=== PATIENT | male | born 1955 | race Caucasian/White ===

== ENCOUNTER → 2023-09-07 08:46 | Outpatient (REF) | payer OTHER, SELFPAY | LOC: DHCBC MAIN 08:46 | PROVIDERS: ATTENDING PHYSICIAN Internal Medicine; FAMILY PHYSICIAN Physician Assistant Medical | DX: I35.0 Nonrheumatic aortic (valve) stenosis (principal) | CPT/HCPCS: 93306 ==

== ENCOUNTER → 2024-01-04 15:00 | Outpatient (REF) | payer OTHER, SELFPAY | LOC: RAD 15:00 | PROVIDERS: ATTENDING PHYSICIAN Physician Assistant Medical | DX: M25.511 Pain in right shoulder (principal) | CPT/HCPCS: 73030 ==

== ENCOUNTER → 2024-02-07 08:56 | Outpatient (REF) | payer OTHER, SELFPAY | LOC: RCS 08:56 | PROVIDERS: ATTENDING PHYSICIAN Internal Medicine; FAMILY PHYSICIAN Physician Assistant Medical | DX: I35.0 Nonrheumatic aortic (valve) stenosis (principal) | CPT/HCPCS: 93017; 93320; 93325; 93350 ==

== ENCOUNTER 2024-02-20 06:22 | Day surgery (SDC) | payer OTHER, SELFPAY ==
[2024-02-17 10:07] LABS: % Eosinophils 2.7 % (0-6); % Immature Granulocytes 0.5 % (0-0.5); % Monocytes 10.9 % (1.7-9.3); % Neutrophils 60.9 % (42.2-75.2); Absolute Basophils 0.1 10^3/uL (0-0.2); Absolute Eosinophils 0.2 10^3/uL (0-0.7); Absolute Lymphocytes 1.4 10^3/uL (1.2-3.4); Absolute Monocytes 0.6 10^3/uL (0.1-0.6); Absolute Neutrophils 3.6 10^3/uL (1.4-6.5); Hemoglobin 14.8 g/dL (13.0-18.0); Mean Corp Hgb Conc. 34.4 g/dL (33.0-37.0); Mean Corpuscular Hgb 29.1 pg (27.0-31.0); Mean Corpuscular Volume 84.5 fL (80.0-94.0); Mean Platelet Volume 11.6 fL (7.4-10.4); Nucleated Red Blood Cells % 0 % (-); Platelet Count 156 10^3/uL (130-400); Red Blood Cell Count 5.09 10^6/uL (4.70-6.10); Red Cell Dist. Width 13.4 % (11.5-14.5); White Blood Cell Count 5.9 10^3/uL (4.8-10.8)
[2024-02-17 10:54] LABS: ALT (SGPT) 19 U/L (0-50); AST (SGOT) 38 U/L (17-59); Albumin 4.5 g/dl (3.5-5.0); Alkaline Phosphatase 48 U/L (38-126); Blood Urea Nitrogen 25 mg/dl (9-20); Calcium 9.9 mg/dl (8.4-10.2); Carbon Dioxide 23 mmol/L (22-30); Chloride 105 mmol/L (98-107); Glucose 111 mg/dl (70-99); Potassium 4.4 mmol/L (3.5-5.1); Sodium 140 mmol/L (135-145); Total Protein 7.1 g/dl (6.3-8.2); eGFR > 60.00
[2024-02-20] VITALS (12 sets, daily range): BP systolic 94–134; BP diastolic 58–69; BMI 23.5
[2024-02-20] MEDS: LOW STRENGTH ASPIRIN 81 MG PO (07:19)
[2024-02-20] MEDS: NSS 235 ML IV (07:21)
--- NOTE | 2024-02-20 07:28 | HPS.HSE ---
Family Physician
-
Family Physician: Ena Campos
Chief Complaint
-
Severe ,abnormal stress echo.
History of Present Illness
68yo male with which is severe, with slight progression on last echo. Presented for routine stress echo prior to potential valve replacement. Stress echo being abnormal with possible CAD. We will perform a left hearth cath for possible
intervention. Patinet denies symptoms.
Medical History
Past Medical History
Past Medical History: Reports Other (see below)
Additional Past Medical History:
-severe
HTN
HLD
Testicular CA 1970s-chemo
H&N CA -tongue-s/p excision, xrt 2007
Remote tobacco and ETOH
O/A
Past Surgical History: Reports Bowel Resection, Orthopedic (NANCY), Urological (testicle) and Other (ventral hernia)
Additional Past Surgical History:
head and neck-tongue
Social History
Tobacco: Former Smoker
Alcohol: Former (hx-now social)
Family History
Family History: Not pertinent
Allergies / Home Medications
Allergies reflects when Allergies were last updated in [facility].
Home Medications with original date entered in [facility]
Allergy/Medication List:
ALLERGY
NKDA
MEDICATION
Aspirin 81mg daily
lisinopril 2.5mg daily
Pentoxiphyline
Review of Systems
-
History Source: Patient
A 12 point ROS was completed and negative except as noted: Yes
Physical Exam
Vital Signs
Vital Signs
Temp Pulse Resp BP Pulse Ox
97.4 F 69 18 134/69 99
02/20/24 06:15 02/20/24 06:15 02/20/24 06:15 02/20/24 06:15 02/20/24 06:15
Physical Exam
General: Well Developed and Well Nourished
HEENT: PERRLA
Respiratory: Clear
Cardiac: S1/S2, Regular Rhythm and Murmur
GI: Soft and Non Tender
Musculoskeletal: No Edema and Normal Gait & Station
Skin: Warm and Dry
Neuro: AO x 3 and Other (left peripheral visual deficit)
Laboratory Results
-
02/17/24 09:39
02/17/24 09:39
Laboratory Results
Total Bilirubin 1.0 mg/dl (0.2-1.3) 02/17/24 09:39
AST 38 U/L (17-59) 02/17/24 09:39
ALT 19 U/L (0-50) 02/17/24 09:39
Alkaline Phosphatase 48 U/L (38-126) 02/17/24 09:39
Impression/Plan
-
IMPRESSION/PLAN:
Severe , abnormal stress echo-L heart cath.
--- NOTE | 2024-02-20 08:45 | ITS.CL.CATH ---
[employer] - Catheterization
Cardiac Catheterization
Procedure Report:
CARDIAC CATHETERIZATION REPORT
Date of Procedure: 02/20/2024
Referring: Caesar Carnes M.D.
Indication: Severe aortic valve stenosis, abnormal stress test.
PROCEDURE:
1. Right heart catheterization.
2. Left heart catheterization.
3. Coronary angiography.
4. Aortic valve interrogation.
5. Successful IFR of the mid LAD.
ACCESS:
6 Burkinan right radial artery.
5 Burkinan right antecubital vein.
CATHETERS:
1. 5 Burkinan balloon wedge.
2. 5 Burkinan JL 3.5.
3. 5 Burkinan JR4.
4. 6 Burkinan EBU 3.5 guiding catheter.
HEMODYNAMIC DATA
Weight (kg): 78.0
AO (s/d/x mmHg): 115/67/84
LV (s/x mmHg): 184/22
PCWP (a/v/x mmHg): 30/34/23
PA (s/d/x mmHg): 45/19/28
RV (s/x mmHg): 45/10
RA (a/v/x mmHg): 05/16/
SVC SvO2 (%): 72.1
PA SvO2 (%): 73.2
SaO2 (%): 99.0
Hbg (g/dL): 14.7
CO (L/min): 4.20
CI (L/min/m2): 2.10
TPG (mmHg): 5
PVR (Vanegas Units): 1.19
SVR (dynes*seconds*cm^-5): 1410
AVO2 Diff (Volume %): 5.16
AV gradient (x, mmHg): 42.09
AV area (cm2): 0.69
LEFT VENTRICULOGRAPHY: Not performed.
CORONARY ANGIOGRAPHY
Dominance: Right.
Left Main: Normal size, trifurcating vessel.
LAD: Large size vessel giving rise to at least 2 significant diagonals. There is a long, 50% lesion in the mid vessel immediately after the origin of the third diagonal.
Ramus: Small to medium size vessel supplying a portion of the proximal anterolateral wall. There is a 70% lesion in the proximal third of the vessel.
Circumflex: Large size, nondominant vessel giving rise to 2 obtuse marginals. OM1 is a small, bifurcating vessel that supplies a small amount of the proximal lateral wall. OM 2 is a large vessel which subsequently bifurcates into 2 daughter
branches and supplies the majority of the inferolateral wall. There are luminal irregularities in the body of OM 2.
RCA: Normal size, dominant vessel with a significant posterolateral arcade. There is a 30-40% lesion in the distal RCA, immediately proximal to the origin of the RPDA.
INTERVENTIONS
1. Successful IFR of the 50% mid LAD lesion, demonstrating occlusive disease (IFR = 0.83).
Narrative:
The decision was made to perform physiologic testing. The diagnostic catheter was removed over a wire and exchanged for a(n) 6 Burkinan EBU 3.5 guiding catheter. The guiding catheter was advanced into the ascending aorta and seated in the left main
coronary artery. Additional heparin was given to obtain an ACT greater than 250 seconds. An iFR wire was zeroed outside of the body, then inserted into the guiding sheath. The wire was advanced and the transducer was normalized just outside of the
guiding catheter tip. The wire was advanced into the distal LAD, beyond the 50% mid LAD lesion. Three iFR measurements were taken. The lesion was determined to be occlusive (0.83).
The wire was pulled back, confirming fidelity of measurement. The catheter was disengaged and the wire was withdrawn. The guiding catheter was then withdrawn over a standard J-wire.
Closure Device: Vascular band for the right radial artery, manual pressure for the right antecubital vein.
Radiation dose (mGy): 410.10
DAP (cm2.Gy): 35.9906
Fluoroscopy time (minutes): 7.5
Sedation time (minutes): 25
CONCLUSIONS:
1. Right dominant circulation with a 70% lesion in the proximal ramus, a 30-40% lesion in the distal RCA immediately proximal to the origin of the RPDA and an occlusive, 50% lesion in the mid LAD (IFR = 0.83).
2. Severe aortic valve stenosis (BA = 0.69 cm�, mean gradient 42.09 mmHg).
3. Moderately elevated filling pressures (LVEDP = 22 mmHg, PCWP = 23 mmHg at 78.0 kg).
RECOMMENDATIONS:
1. Expectant management after cardiac catheterization via right radial/antecubital approach.
2. Limited weight bearing on the right wrist for one week.
3. Consultation with multidisciplinary valve group regarding optimal strategy for valve replacement given the presence of occlusive coronary artery disease (PCI plus TAVR versus NARVAEZ to LAD plus SAVR).
4. Aggressive primary prevention including high-dose, high potency statin.
Copy to: Caesar Carnes M.D., Ena Campos PA-C
Andres Alberts DO, FACC, FACP
--- NOTE | 2024-02-20 11:00 | CONSULT.STRU ---
Consultation
-
Date/Time Consultation Requested: 02/20/2024
Date/Time Consultation Performed: 02/20/2024
Requesting Provider: Dr. Andres Alberts
Performing Provider: VIK Menezes
Reason for Consultation: Aortic stenosis/CAD
Patient History
Physicians
Family Physician: Ena Campos
Outpatient Account Technician: Caesar Carnes
Primary Account Technician: Caesar Carnes
History of Present Illness
Mr. Martinez is a very pleasant 68yo male with severe aortic stenosis that had a cardiac catheterization today. He denies any ALVARENGA. He thinks he is feeling slightly more fatigued but overall he remains fairly active. He denies chest pain,
palpitations, PND, orthopnea or peripheral edema. His echocardiogram was notable for PG/M/49, BA: 1.0, peak velocity 462.0cm/s, mild to moderate AI, MAC with trace MR. EF is 60-65%. Stress echo was done on 02/07/2024 with PG/M/41, BA: 0.9,
post exercise PG/M/64, BA: 0.8. . Cardiac cath today demonstrates right dominant circulation with a 70% lesion in the proximal ramus, a 30-40% lesion in the distal RCA immediately proximal to the origin of the RPDA and an occlusive, 50%
lesion in the mid LAD (IFR = 0.83). Severe aortic valve stenosis (BA = 0.69 cm�, mean gradient 42.09 mmHg). Moderately elevated filling pressures (LVEDP = 22 mmHg, PCWP = 23 mmHg at 78.0 kg).
Reviewed the pathophysiology of aortic stenosis with the patient. Explained the treatment options of SAVR and TAVR. Explained the TAVR evaluation process including follow up BMP, CT TAVR scan, CT surgery consult and Heart Team discussion. Provided
with script for BMP next week, script and appointment for CT TAVR, Consult appointment with Dr. Amor and a copy of the TAVR education booklet with contact information. Explained the shared decision making process and the ongoing discussion that
will be had in deciding best treatment recommendation of TAVR/PCI vs SAVR/CABG. Allowed for and answered questions.
Past Medical History
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
Other (h/o Acute diverticulitis 2016)
Past Surgical History
Past Surgical History: Other (Tongue resection 2007, surgery for testicular cancer 1974, robot assisted lap. repair of ventral incisional hernia, R-THR)
Dental History
Receives regular dental care. Will call with dentist information.
Family History
Mother: at Age (58yo, brain cancer)
Father: at Age (72yo, NV)
Family Medical History: Early CAD (Brother had NV at 58yo)
Social History
Alcohol: Occasional
Drug: None
Tobacco: Former Smoker
Personal: Single
Living: Alone
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
Allergies
Allergy/AdvReac Type Severity Reaction Status Date / Time
No Known Allergies Allergy Verified 02/20/24 06:34
Home Medications
�Medication �Instructions �Recorded �Confirmed �Type
lisinopril 2.5 mg tablet 2.5 mg PO DAILY 07/26/20 02/20/24 History
vitamin E 268 mg (400 unit) capsule 400 unit PO BID 07/26/20 02/20/24 History
aspirin 81 mg chewable tablet 81 mg PO DAILY 02/14/24 02/20/24 History
multivitamin 1 tab PO DAILY 02/14/24 02/20/24 History
pentoxifylline 400 mg 400 mg PO TID 02/14/24 02/20/24 History
tablet,extended release
atorvastatin 40 mg tablet 40 mg PO DAILY #90 tabs 02/20/24 Rx
STS%
STS %: AVR: 0.732%, AVR/CAB: 1.4%
Review of Systems
-
History Source: Patient
General: Reports Fatigue (mild)
HEENT: Reports No Symptoms; Denies Visual Changes
Respiratory: Reports No Symptoms; Denies SOB, ALVARENGA, Cough, Asthma or PND
Cardiac: Reports No Symptoms; Denies Chest Pain, Known Vascular Disease, Palpitations or Edema
Abdomen/GI: Reports No Symptoms; Denies Abdominal Pain, Reflux, Nausea, Vomiting or Diarrhea
: Reports No Symptoms
Musculoskeletal: Reports No Symptoms
Skin: Reports No Symptoms
Neurological: Reports No Symptoms; Denies Headaches, Syncope or Dizzy
Vascular: Reports No Symptoms
Physical Exam
Vital Signs
Temp 97.4 F 02/20/24 06:41
Temp route: Oral 02/20/24 06:15
Pulse 70 02/20/24 10:30
Resp Rate 18 02/20/24 06:15
Blood pressure 126/66 02/20/24 10:29
Blood pressure extremity used: Right upper arm 02/20/24 10:10
Position: Sitting 02/20/24 10:10
MAP (cuff-Rigo Monitor) 86 02/20/24 10:29
SaO2 97 02/20/24 10:30
Oxygen Mode of Delivery Room air 02/20/24 10:10
Can the patient verbally communicate their pain? Yes 02/20/24 10:10
Actual Weight 78.4 kg 02/20/24 06:35
Body Mass Index (BMI) 23.5 02/20/24 06:35
Labs
02/17/24 09:39
02/17/24 09:39
Diagnostic Studies
Echocardiogram 09/07/2023:
CONCLUSIONS
Normal left ventricular size and systolic function. LV ejection fraction is 60-
65%.
Moderate concentric left ventricular hypertrophy.
Severe aortic stenosis. Mild to moderate aortic regurgitation.
Compared to prior study of Feb 2023, gradients have increased.
Indications:
Nonrheumatic aortic (valve) stenosis
Rhythm: Sinus
Portable Study: No
Technical Quality: Good
Contrast: None
BP: 138 / 76
PROCEDURE
A complete Transthoracic Echocardiogram was performed utilizing two-dimensional
evaluation with color flow and spectral Doppler analysis.
FINDINGS
Left Ventricle
Normal left ventricular size and systolic function. Moderate concentric left
ventricular hypertrophy. No regional wall motion abnormalities are seen. LV
ejection fraction is 60-65% by Moerlos's method of discs. Diastolic function
indeterminate.
Right Ventricle
Normal right ventricular size and function.
Left Atrium
Indexed LA volume is severely abnormal (> 48 mL/m2).
Right Atrium
Normal right atrium.
Mitral Valve
Mitral valve opens normally. Thickened mitral valve leaflets. Mitral annular
calcification. Trace mitral regurgitation.
Aortic Valve
Thickened aortic valve with restricted leaflet motion. Severe aortic stenosis.
The peak gradient across the valve is 85 mmHg with a mean of 49 mmHg. Using a
LVOT diameter of 2.3 cm, the BA is 1.0 cm sq. DI 0.2. Mild to moderate aortic
regurgitation.
Tricuspid Valve
Tricuspid valve opens normally. Trace tricuspid regurgitation. Estimated
pulmonary artery pressure of 19 mmHg assuming a right atrial pressure of 3
mmHg.
Pulmonic Valve
Structurally normal pulmonic valve. Mild pulmonic regurgitation.
Pericardium\\Pleura
Normal pericardium without effusion.
Aorta
The aortic root is of normal size. Normal ascending aorta.
Other Finding
The IVC is of normal size and demonstrates normal respiratory variation.
Interatrial septum is intact with no evidence of shunting by color flow
Doppler.
MEASUREMENTS (Male / Female) Normal Values
2D ECHO
LV Diastolic Diameter PLAX 4.2 cm 4.2 - 5.9 / 3.9 - 5.3 cm
LV Systolic Diameter PLAX 3.0 cm
IVS Diastolic Thickness 1.4 cm 0.6 - 1.0 / 0.6 - 0.9 cm
LVPW Diastolic Thickness 1.4 cm 0.6 - 1.0 / 0.6 - 0.9 cm
LV Relative Wall Thickness 0.7
LVOT Diameter 2.3 cm
LV Ejection Fraction MOD BP 63.6 % >= 55 %
LV Stroke Volume MOD BP 56.0 cm3
LV Cardiac Index MOD BP 2041.2 cm3/min
LV Stroke Volume MOD 4C 53.0 cm3
LV Stroke Volume 4C AL 59.3 cm3
LV Stroke Volume MOD 2C 58.0 cm3
LV Stroke Volume 2C AL 60.2 cm3
LA Area 4C View 27.4 cm2 <= 20 cm2
LA Length 4C 6.5 cm
LA Volume 93.0 cm3 18 - 58 / 22 - 52 cm3
LA Volume Index 52.5 cm3/m2 16 - 34 cm3/m2
Ascending Aorta Diameter 3.7 cm
DOPPLER
AV Peak Velocity 462.0 cm/s
AV Peak Gradient 85.4 mmHg
AV Mean Gradient 49.0 mmHg
AV Velocity Time Integral 92.2 cm
AI Peak Velocity 410.0 cm/s
AI Peak Gradient 67.2 mmHg
AI Pressure Half Time 392.0 ms
LVOT Peak Velocity 86.5 cm/s
LVOT Peak Gradient 3.0 mmHg
LVOT Velocity Time Integral 23.1 cm
LVOT Stroke Volume 96.0 cm3
LVOT Stroke Volume Index 47.3 ml/m2 empty
LVOT Cardiac Index 3498.3 cm3/min\\m2
AV Area Cont Eq vti 1.0 cm2
AV Area Cont Eq pk 0.8 cm2
Mitral E Point Velocity 70.1 cm/s
Mitral A Point Velocity 80.5 cm/s
Mitral E to A Ratio 0.9
LV E' Lateral Velocity 6.7 cm/s
Mitral E to LV E' Lateral Ratio 10.4
LV E' Septal Velocity 5.4 cm/s
Mitral E to LV E' Septal Ratio 13.1
TR Peak Velocity 200.0 cm/s
TR Peak Gradient 16.0 mmHg
Stress Echocardiogram 02/07/2024:
CONCLUSIONS
Abnormal stress echocardiogram.
-Baseline measurements: Severe aortic stenosis with peak/mean gradients of
68/41 mmHg calculated BA 0.9 cm2.
-Post exercise measurements: Severe aortic stenosis with peak/mean gradients of
120/64 mmHg, calculated BA 0.8 cm2.
-Positive ECG for ischemia with 2.0-2.[address] depression
inferolaterally at peak exercise; post-exercise ECG was slow to fully resolve
in recovery.
-No echocardiographic evidence of myocardial ischemia.
-DTS = -4.5.
-There was a noted drop in systolic blood pressure in Stage 3 of exercise;
exercise was soon thereafter terminated (Class IIa indication for aortic valve
replacement in asymptomatic severe aortic stenosis).
-Overall, moderate to high risk study.
Site Medical Director: Jeremie
ELBERT Melendez
Stress Tech: Charisma Holguin,
MS,CEP
Indications:
NONRHEUMATIC AORTIC (VALVE) STENOSIS
Rhythm: Sinus
Contrast: None
Technical Quality: Good
PROCEDURE
A treadmill Exercise Stress Echocardiogram was completed. Blood pressure, heart
rate and ECG tracings were obtained with each Walker protocol stage completed.
Pre-exercise two-dimensional transthoracic echocardiogram evaluation and post-
exercise two-dimensional transthoracic echocardiogram evaluation images were
obtained. Color flow and spectral Doppler evaluation was performed if
clinically necessary.
Patient History: Asymptomatic severe aortic stenosis, Hypertension
Cardiac Medications: Lisinopril: held today
Contrast:
Stress Results
Protocol: Walker
Exercise Duration (min:sec): 8 : 0
METS: 9.0
Rest Pulse Ox: 98 Stress Pulse Ox: 97
Forrester Score Risk Of Cardiac Event
Less than -10 is High Risk
-10 to +4 is Moderate Risk
>= 5 is Low Risk
Resting HR: 79 Resting BP: 142 / 68
Peak HR: 150 Peak BP: 164 / 74
Max Predicted HR: 150
100 % Max Predicted HR
Target HR: 128
Double Product: 71201
Forrester Score: -4.5
Angina Score: 0
0-none, 2-ied-ignanwos, 8-zffk-[id number]
ST Deviation: 2.5 mm
Stress Summary: The patient was exercised by the Walker protocol for
8:00 achieving 9.0 METS representing above average
aerobic exercise capacity.
The patient's target heart rate was achieved, reaching
150 bpm/100% predicted maximum heart rate.
There were no symptoms reported by the patient.
Occasional PVCs including rare ventricular couplets
and triplets; frequent PACs, including occasional
couplets and 4-5 beat atrial runs.
Positive ECG for ischemia with 2.0-2.[address] depression inferolaterally at peak exercise; post-
exercise ECG was slow to fully resolve in recovery.
BP Response: Hypotensive at peak exercise
Reason for Termination: MD discretion
Cardiac Symptoms: None
ECG INTERPRETATION
Resting ECG: Normal sinus rhythm, Minimal voltage criteria for LVH, rSr' V1-V2
Stress ECG: Positive ECG for ischemia with 2.0-2.[address]
depression inferolaterally at peak exercise; post-exercise ECG
was slow to fully resolve in recovery.
Arrhythmia: Occasional PVCs including rare ventricular couplets and triplet
Occasional-frequent PACs including occasional atrial couplets,
atrial salvos and rare 4-5 beat atrial runs
MEASUREMENTS (Male/Female) Normal Values
2D ECHO
LVOT Diameter 2.4 cm
DOPPLER
AV Peak Velocity 568 cm/s
AV Peak Gradient 129 mmHg
AV Mean Gradient 79 mmHg
AV Velocity Time Integral 93.5 cm
LVOT Peak Velocity 88.1 cm/s
LVOT Peak Gradient 3.1 mmHg
LVOT Velocity Time Integral 19.3 cm
LVOT Stroke Volume 87.3 cm3
LVOT Stroke Volume Index 43.6 ml/m2 empty
LVOT Cardiac Index 3441 cm3/min
AV Area Cont Eq vti 0.93 cm2
AV Area Cont Eq pk 0.7 cm2
ECHO INTERPRETATION
Resting images revealed normal left ventricular size and function. No regional
wall motion abnormalities were seen. The estimated ejection fraction is 60-
65%.
Post-Exercise Echo Interpretation
At peak exercise, the left ventricle augmented appropriately with no new
regional wall motion abnormalities. LV ejection fraction at peak exercise is
70-75%.
Cardiac Catheterization 02/20/2024:
HEMODYNAMIC DATA
Weight (kg):78.0
AO (s/d/x mmHg): 115/67/84
LV (s/x mmHg): 184/22
PCWP (a/v/x mmHg): 30/34/23
PA (s/d/x mmHg): 45/19/28
RV (s/x mmHg): 45/10
RA (a/v/x mmHg): 05/16/10
SVC SvO2 (%):72.1
PA SvO2 (%):73.2
SaO2 (%):99.0
Hbg (g/dL):14.7
CO (L/min): 4.20
CI (L/min/m2): 2.10
TPG (mmHg): 5
PVR (Vangeas Units): 1.19
SVR (dynes*seconds*cm^-5): 1410
AVO2 Diff (Volume %): 5.16
AV gradient (x, mmHg):42.09
AV area (cm2):0.69
LEFT VENTRICULOGRAPHY: Not performed.
CORONARY ANGIOGRAPHY
Dominance: Right.
Left Main: Normal size, trifurcating vessel.
LAD: Large size vessel giving rise to at least 2 significant diagonals. There is a long, 50% lesion in the mid vessel immediately after the origin of the third diagonal.
Ramus:Small to medium size vessel supplying a portion of the proximal anterolateral wall. There is a 70% lesion in the proximal third of the vessel.
Circumflex: Large size, nondominant vessel giving rise to 2 obtuse marginals. OM1 is a small, bifurcating vessel that supplies a small amount of the proximal lateral wall. OM 2 is a large vessel which subsequently bifurcates into 2 daughter
branches and supplies the majority of the inferolateral wall. There are luminal irregularities in the body of OM 2.
RCA: Normal size, dominant vessel with a significant posterolateral arcade. There is a 30-40% lesion in the distal RCA, immediately proximal to the origin of the RPDA.
INTERVENTIONS
1. Successful IFR of the 50% mid LAD lesion, demonstrating occlusive disease (IFR = 0.83).
Narrative:
The decision was made to perform physiologic testing. The diagnostic catheter was removed over a wire and exchanged for a(n) 6 Jordanian EBU 3.5 guiding catheter. The guiding catheter was advanced into the ascending aorta and seated in the left main
coronary artery. Additional heparin was given to obtain an ACT greater than 250 seconds. An iFR wire was zeroed outside of the body, then inserted into the guiding sheath. The wire was advanced and the transducer was normalized just outside of the
guiding catheter tip. The wire was advanced into the distal LAD, beyond the 50% mid LAD lesion. Three iFR measurements were taken. The lesion was determined to be occlusive (0.83).
The wire was pulled back, confirming fidelity of measurement. The catheter was disengaged and the wire was withdrawn. The guiding catheter was then withdrawn over a standard J-wire.
Closure Device: Vascular band for the right radial artery, manual pressure for the right antecubital vein.
Radiation dose (mGy): 410.10
DAP (cm2.Gy): 35.9906
Fluoroscopy time (minutes):7.5
Sedation time (minutes):25
CONCLUSIONS:
1. Right dominant circulation with a 70% lesion in the proximal ramus, a 30-40% lesion in the distal RCA immediately proximal to the origin of the RPDA and an occlusive, 50% lesion in the mid LAD (IFR = 0.83).
2. Severe aortic valve stenosis (BA = 0.69 cm�, mean gradient 42.09 mmHg).
3. Moderately elevated filling pressures (LVEDP = 22 mmHg, PCWP = 23 mmHg at 78.0 kg).
RECOMMENDATIONS:
1. Expectant management after cardiac catheterization via right radial/antecubital approach.
2. Limited weight bearing on the right wrist for one week.
3. Consultation with multidisciplinary valve group regarding optimal strategy for valve replacement given the presence of occlusive coronary artery disease (PCI plus TAVR versus NARVAEZ to LAD plus SAVR).
4. Aggressive primary prevention including high-dose, high potency statin.
Exam
General: Well Developed, Well Nourished, No Apparent Distress and Comfortable
HEENT: Normocephalic, Moist Mucous Membranes and PERRLA
Neck: Trachea Midline
Respiratory: Clear; Negative Wheezes, Crackles or Rhonchi
Cardiac: S1/S2, Regular Rhythm and Murmur (Grade III/)
GI: Soft, Non Tender, Non Distended and Normal Bowel Sounds
Rectal: Deferred by Provider
Skin: Warm and Dry
Neuro: AO x 3 and No Motor Deficits
Extremities: Pulses (+2 pedal pulses); Negative Lower Level Edema
Psych: Calm
Assessment / Plan
-
Procedure Type:�Isolated AVR
PERIOPERATIVE OUTCOME ESTIMATE %
Operative Mortality 0.732%
Morbidity & Mortality 5.1%
Stroke 0.992%
Renal Failure 0.619%
Reoperation 4.13%
Prolonged Ventilation 2.3%
Deep Sternal Wound Infection 0.036%
Long Hospital Stay (>14 days) 1.44%
Short Hospital Stay (<6 days)* 68.3%
Procedure Type:�CABG + AVR
PERIOPERATIVE OUTCOME ESTIMATE %
Operative Mortality 1.4%
Morbidity & Mortality 7.36%
Stroke 1.2%
Renal Failure 1.06%
Reoperation 5.26%
Prolonged Ventilation 4.19%
Deep Sternal Wound Infection 0.066%
Long Hospital Stay (>14 days) 2.91%
Short Hospital Stay (<6 days)* 49.7%
Severe Aortic stenosis:
��������������� Continue evaluation for TAVR vs SAVR
��������������� BMP 02/27/2024 at [facility]
��������������� CT TAVR scan 03/02/2024 at 0930 at
��������������� CT surgery consult with Dr. Amor on 03/06/2024
��������������� Heart team discussion at [facility]
Coronary Artery Disease:
Heart healthy diet
Started on Atorvastatin 40mg daily
ASA 81mg daily
Heart team discussion PCI vs CABG
Data Reviewed
-
EKG: Report Reviewed by me
Smoke Chaser: Report Reviewed by me and Discussed with Physician
Echo: Report Reviewed by me
Labs: Labs Reviewed by me
Old Records: Reviewed
Critical Care Time (in minutes): Cardiology office notes
Total Time Spent with Patient (in minutes): 30
[2024-02-20 12:10] LABS: ACT-LR - POC > 397 Seconds (116-155)
== END 2024-02-20 12:07 | disposition home or self-care (01) ==
LOC: CATH 06:22
PROVIDERS: ATTENDING PHYSICIAN Internal Medicine Cardiovascular Disease; FAMILY PHYSICIAN Physician Assistant Medical; OTHER PHYSICIAN Internal Medicine
DX: I35.2 Nonrheumatic aortic (valve) stenosis with insufficiency (principal); R94.39 Abnormal result of other cardiovascular function study; I25.10 Atherosclerotic heart disease of native coronary artery without angina pectoris; I10 Essential (primary) hypertension; E78.5 Hyperlipidemia, unspecified; Z85.47 Personal history of malignant neoplasm of testis; Z85.819 Personal history of malignant neoplasm of unspecified site of lip, oral cavity, and pharynx; Z87.891 Personal history of nicotine dependence; Z82.49 Family history of ischemic heart disease and other diseases of the circulatory system; Z79.82 Long term (current) use of aspirin
CPT/HCPCS: 93799; C1769; C1894; 36415; 80053; 85025; 85347; 93005; 93460; Q9967

== ENCOUNTER → 2024-03-02 08:38 | Outpatient (REF) | payer OTHER, SELFPAY | LOC: RAD 08:38 | PROVIDERS: ATTENDING PHYSICIAN Nurse Practitioner Adult Health; FAMILY PHYSICIAN Physician Assistant Medical | DX: I35.0 Nonrheumatic aortic (valve) stenosis (principal) | CPT/HCPCS: 74174; 75572; Q9967 ==

== ENCOUNTER 2024-04-16 05:08 | Inpatient (IN) | payer OTHER, SELFPAY ==
[2024-03-27 08:52] VITALS: BMI 24.3
[2024-03-27 09:56] LABS: Urine Albumin Negative (Neg - Trace); Urine Bilirubin Negative (Negative); Urine Character Clear (Clear); Urine Color Yellow; Urine Glucose Negative (Negative); Urine Ketone Negative (Negative); Urine Leukocyte Negative (Negative); Urine Nitrite Negative (Negative); Urine Occult Blood Negative (Negative); Urine Urobilinogen Negative (Neg - 1+)
[2024-03-27 10:00] LABS: % Basophils 0.6 % (0-2); % Eosinophils 3.1 % (0-6); % Immature Granulocytes 0.3 % (0-0.5); % Lymphocytes 18.3 % (20.5-51.1); % Monocytes 13.4 % (1.7-9.3); % Neutrophils 64.3 % (42.2-75.2); Absolute Eosinophils 0.2 10^3/uL (0-0.7); Absolute Lymphocytes 1.2 10^3/uL (1.2-3.4); Absolute Monocytes 0.9 10^3/uL (0.1-0.6); Absolute Neutrophils 4.1 10^3/uL (1.4-6.5); Hematocrit 42.2 % (39.0-52.0); Hemoglobin 14.2 g/dL (13.0-18.0); Mean Corp Hgb Conc. 33.6 g/dL (33.0-37.0); Mean Corpuscular Hgb 29.4 pg (27.0-31.0); Mean Corpuscular Volume 87.4 fL (80.0-94.0); Mean Platelet Volume 12.2 fL (7.4-10.4); Nucleated Red Blood Cells % 0 % (-); Platelet Count 117 10^3/uL (130-400); Red Blood Cell Count 4.83 10^6/uL (4.70-6.10); Red Cell Dist. Width 13.4 % (11.5-14.5); White Blood Cell Count 6.4 10^3/uL (4.8-10.8)
--- NOTE | 2024-03-27 10:10 | CM ---
Met with Mr. Martinez in [facility] He states prior to admission he resides in a two story condo with twelve steps to enter. He states he has a full flight of steps to get to bedroom/full bathroom. He states he has a powder room on the first floor.
He states prior to admission he was independent with ambulation and adls. He states he does not have any DME in the home. He states he has a prescription plan. He has a supportive daughter who resides nearby. The discharge plan is to return home
with a home visit by the Transitional Care Nurse when medically stable.
We reviewed pre-op and post-op routines. We reviewed the shower instructions. He has the soap, written instructions and the Cardiothoracic Surgery Educational Booklet. We also reviewed restrictions including sternal precautions and driving
restrictions. We discussed a home visit by the Transitional Care Nurse. He is agreeable to a home visit. The plan is for AVR/MVR on Tuesday April 16, 2024.
[2024-03-27 10:12] LABS: INR 1.01; PT 13.1 Sec (11.4-14.6)
[2024-03-27 10:13] LABS: APTT 28.6 Sec (23.4-35.0)
[2024-03-27 10:27] LABS: ALT (SGPT) 22 U/L (0-50); AST (SGOT) 30 U/L (17-59); Albumin 4.4 g/dl (3.5-5.0); Alkaline Phosphatase 47 U/L (38-126); Blood Urea Nitrogen 21 mg/dl (9-20); Calcium 9.2 mg/dl (8.4-10.2); Carbon Dioxide 26 mmol/L (22-30); Chloride 105 mmol/L (98-107); Direct Bilirubin 0.2 mg/dl (0.0-0.4); Estimated Creatinine Clearance 83 ml/min; Glucose 93 mg/dl (70-99); Potassium 4.6 mmol/L (3.5-5.1); Sodium 142 mmol/L (135-145); Total Bilirubin 0.9 mg/dl (0.2-1.3); eGFR > 60.00
[2024-04-16] VITALS (10 sets, daily range): BP systolic 77–138; BP diastolic 57–71; BMI 23.7
[2024-04-16] MEDS: MAGNESIUM OXIDE 500 MG PO (05:42)
[2024-04-16] MEDS: LOPRESSOR 25 MG PO (05:42)
[2024-04-16] MEDS: PROTONIX 40 MG PO (05:42)
[2024-04-16] MEDS: BACTROBAN 2% OINTMENT 1 APPLIC NASAL ×2 (05:42→20:59)
--- NOTE | 2024-04-16 06:07 | W.CVOR.SURPR ---
CVOR Surgeon Immed Pre Op
-
I have examined this patient prior to performance of the scheduled procedure.
The patient's condition is unchanged from the time of the dictated/written History and
Physical and the patient is able to undergo the scheduled procedure.
[2024-04-16 07:11] LABS: ACT+ - POC 104 Seconds (82-134)
[2024-04-16 07:23] LABS: Urine Albumin Negative (Neg - Trace); Urine Bilirubin Negative (Negative); Urine Character Clear (Clear); Urine Color Yellow; Urine Glucose Negative (Negative); Urine Ketone Negative (Negative); Urine Leukocyte Negative (Negative); Urine Nitrite Negative (Negative); Urine Occult Blood Negative (Negative); Urine Specific Gravity 1.005 (<1.030); Urine Urobilinogen Negative (Neg - 1+)
[2024-04-16 09:34] LABS: ACT+ - POC 691 Seconds (82-134)
[2024-04-16 10:08] LABS: B.E. - POC -4.1 mmol/L; Glucose - POC 96 mg/dl (70-99); HCO3 - POC 22 mmol/L (21-28); Hematocrit - POC 38 % PCV (42-52); Hemodilution- POC Yes; Hemoglobin Calculated - POC 12.9; Ionized Calcium - POC 1.21 mmol/L (1.15-1.33); PCO2 - POC 44 mmHg (35-48); PO2 - POC 436 mmHg (83-108); POC Comment PRE; Potassium - POC 3.6 mmol/L (3.5-5.1); Sodium - POC 141 mmol/L (136-145); pH - POC 7.31 (7.35-7.45)
[2024-04-16 10:23] LABS: ACT+ - POC 725 Seconds (82-134)
[2024-04-16 10:39] LABS: B.E. - POC 1.7 mmol/L; Glucose - POC 157 mg/dl (70-99); HCO3 - POC 26 mmol/L (21-28); Hematocrit - POC 31 % PCV (42-52); Hemodilution- POC Yes; Hemoglobin Calculated - POC 10.5; Ionized Calcium - POC 1.01 mmol/L (1.15-1.33); O2 Saturation %Calculated-POC 99.9 % (94-98); PCO2 - POC 40 mmHg (35-48); PO2 - POC 324 mmHg (83-108); POC Comment CPB; Potassium - POC 5.2 mmol/L (3.5-5.1); Sodium - POC 137 mmol/L (136-145); pH - POC 7.42 (7.35-7.45)
[2024-04-16 10:51] LABS: ACT+ - POC 629 Seconds (82-134)
[2024-04-16 11:08] LABS: B.E. - POC 1.1 mmol/L; Glucose - POC 149 mg/dl (70-99); HCO3 - POC 26 mmol/L (21-28); Hematocrit - POC 39 % PCV (42-52); Hemodilution- POC Yes; Hemoglobin Calculated - POC 13.3; Ionized Calcium - POC 1.06 mmol/L (1.15-1.33); O2 Saturation %Calculated-POC 99.7 % (94-98); PCO2 - POC 39 mmHg (35-48); PO2 - POC 191 mmHg (83-108); POC Comment CPB; Potassium - POC 4.4 mmol/L (3.5-5.1); Sodium - POC 140 mmol/L (136-145); pH - POC 7.42 (7.35-7.45)
[2024-04-16 11:18] LABS: ACT+ - POC 538 Seconds (82-134)
[2024-04-16 11:40] LABS: B.E. - POC 0.2 mmol/L; Glucose - POC 117 mg/dl (70-99); HCO3 - POC 25 mmol/L (21-28); Hematocrit - POC 37 % PCV (42-52); Hemodilution- POC Yes; Hemoglobin Calculated - POC 12.6; Ionized Calcium - POC 1.07 mmol/L (1.15-1.33); O2 Saturation %Calculated-POC 99.8 % (94-98); PCO2 - POC 40 mmHg (35-48); PO2 - POC 220 mmHg (83-108); POC Comment CPB; Potassium - POC 4.1 mmol/L (3.5-5.1); Sodium - POC 141 mmol/L (136-145); pH - POC 7.41 (7.35-7.45)
[2024-04-16 11:49] LABS: ACT+ - POC 492 Seconds (82-134)
[2024-04-16 11:57] LABS: B.E. - POC 0.8 mmol/L; Glucose - POC 106 mg/dl (70-99); HCO3 - POC 25 mmol/L (21-28); Hematocrit - POC 38 % PCV (42-52); Hemodilution- POC Yes; Hemoglobin Calculated - POC 12.9; Ionized Calcium - POC 1.07 mmol/L (1.15-1.33); O2 Saturation %Calculated-POC 99.8 % (94-98); PCO2 - POC 38 mmHg (35-48); PO2 - POC 223 mmHg (83-108); POC Comment CPB; Potassium - POC 4.2 mmol/L (3.5-5.1); Sodium - POC 141 mmol/L (136-145); pH - POC 7.42 (7.35-7.45)
[2024-04-16 12:06] LABS: ACT+ - POC 514 Seconds (82-134)
--- NOTE | 2024-04-16 12:18 | CM ---
pt in OR today, cm to follow.
[2024-04-16 12:48] LABS: B.E. - POC -2.7 mmol/L; Glucose - POC 120 mg/dl (70-99); HCO3 - POC 21 mmol/L (21-28); Hematocrit - POC 37 % PCV (42-52); Hemodilution- POC Yes; Hemoglobin Calculated - POC 12.5; Ionized Calcium - POC 1.05 mmol/L (1.15-1.33); O2 Saturation %Calculated-POC 99.9 % (94-98); PCO2 - POC 32 mmHg (35-48); PO2 - POC 244 mmHg (83-108); POC Comment WARM; Potassium - POC 4.2 mmol/L (3.5-5.1); Sodium - POC 140 mmol/L (136-145); pH - POC 7.43 (7.35-7.45)
[2024-04-16 12:50] LABS: ACT+ - POC 118 Seconds (82-134)
[2024-04-16] MEDS: NEURONTIN PO ×2 (13:05→15:38)
[2024-04-16] MEDS: THERAGRAN PO (13:16)
[2024-04-16] MEDS: TYLENOL PO (13:16)
--- NOTE | 2024-04-16 13:25 | W.IMMPOSTOP ---
Addendum entered and electronically signed by Keyshawn Amor MD 04/16/24 14:33:
[id number]
Original Note:
Surgical Immed Post Op Note
-
CARDIAC SURGERY OPERATIVE NOTE:
Preoperative Dx:
Severe aortic stenosis
Moderate aortic regurgitation
Upte-vw-okwupabb mitral regurgitation
CAD
Postoperative Dx:
Same
Procedures:
1) Median sternotomy
2) Takedown of ALF (narrow pedicle)
3) CABG x 1 (ALF to LAD)
4) AVR (#25 Avalus Ultra)
Surgeon:
Keyshawn Amor M.D.
Assistants:
Aleshia Velazquez P.A.-C.; first sampler throughout
Dominic Tiwari P.A.-C.; uosujx-bxyw-gtly closure
Anesthesia:
Shahram Reyna M.D. and Alena Hernandez.N.A.
Perfusion:
Christopher Daniel.C.P.; XC: 134min, CPB: 164min
Findings:
ALF was healthy appearing conduit w/ very brisk blood flow, ELD 2.5mm
LAD was visible on the epicardial surface w/ heavy, closely scattered calcifications throughout its course. Anastomosis performed at junction between middle and distal third of this vessel. Thickened eaton w/ ELD 2.0mm at anastomotic site. Brisk
blood flow observed.
Tricuspid AV w/ complete fusion of LCC and RCC and partial fusion of RCC and NCC w/ extensive, bulky calcifications > 0.5-0.75cm in height w/ complete circumferential annular extension and extension onto aortomitral curtain. Anterior leaflet of MV
w/ sessile calcifications. Leaflets excised, extensive annular debridement required. LM and RM coronary ostia were well removed from aortic annulus. Annulus & LOVT copiously irrigated post debridement and prior to seating of bioprosthetic valve.
Post-PINKY: Normal biventricular systolic function. Well-seated AVR w/o PVL/AI, mean gradient 10mmHg. MR improvement.
Aortic wall was slightly thin
Implants:
Medtronic Avalus Ultra #25mm valve, [id number]
Epicardial pacing wires x 2
CT x 4 (B/L pleural, inferior mediastinal, superior mediastinal)
Sternal wires x 10
Complications:
None
Transfusions:
1pk PLTS
Condition:
74 isoelectric sinus (0.3/0.5), 100/60, 27/10, CVP 9, CO/CI: 4.0/2.0, 100%
GTTS: levophed 6, insulin 0.6, precedex 0.5
Stable/guarded to CVICU
--- NOTE | 2024-04-16 13:34 | CON.INTV ---
Consultation
Consultation Request
Date/Time Consultation Requested: 04/16/2024 - 1251
Date/Time Consultation Performed: 04/16/2024 - 1319
Requesting Provider: Aleshia Velazquez PA-C
Performing Provider: Manjit Ordonez MD
Reason for Consultation: CABG x1 + SAVR
Medical History
-
Chief Complaint: Elective CABG + SAVR
History of Present Illness:
68-year-old male former tobacco smoker (quit 1976) with a past medical history of CAD + severe aortic stenosis who presents with elective CABG + surgical aortic valve replacement. Patient known to the cardiothoracic surgery service with last visit
on 03/13/[address] Amor. He underwent a stress echo on 03/05/2024 showing severe aortic stenosis with peak/mean gradients of 68/41 with a BA of 0.9 cm�. His EKG was positive for ischemia with 2-2.[address] depressions inferolaterally
at peak exercise. He was referred to a left + right heart catheterization which he underwent on 02/20/2024, showing a 70% lesion in the proximal ramus, 50% lesion in the mid LAD, 30-40% lesion in the distal RCA, with moderately elevated filling
pressures (LVEDP: 22 mmHg, PCWP: 23 mmHg). Also found severe aortic valve stenosis with BA: 0.69 cm� with a mean gradient of [address] TAVR on 03/02/2024 showing no acute findings in the chest, abdomen or pelvis. Risks and benefits
of surgical revascularization with surgical valve replacement were discussed and he has consented to procedure. Today he underwent CABG x 1 (ALF to LAD) + SAVR (#25 Avalus ultra), with no immediate complications and he was transferred to the CVICU
postoperatively for further care. He was transfused 1 pack of platelets, has epicardial pacing wires x 2 with 4 chest tubes (bilateral pleural + inferior mediastinal and the superior mediastinal). [employer] consulted for additional
management/recommendations.
When I saw the patient he was resting in bed in no acute distress, intubated on a CPAP wean at 5/5 at 40% FiO2. PIP: 11 cmH2O with VTe 399 mL and breathing at 21 breaths/min. Heart rate is 86, BP via left radial A-line: 112/65, PAP: 28/15 with
CO/CI: 4.41/2.23, respectively, and saturating 100%. BP via NIBP: 84/63. Currently on Levophed at 5 mcg/min and insulin drip at 2.3 units/hr.
PMHx: CAD, severe aortic stenosis, history of oral cancer, testicular cancer, hypertension, hyperlipidemia, ventral incisional hernia, history of diverticulitis
PSHx: Robotic assisted laparoscopic repair of ventral incisional hernia, right hip replacement
Past Medical History
Past Medical History: Other (Above as per HPI)
Past Surgical History: Other (Above as per HPI)
Social History
Tobacco: Former Smoker (Quit 1977)
Alcohol: Occasional (Social)
Drug: None
Personal:
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
Family History
Family History: CAD (Father + sister) and Cancer (Mother)
Allergies / Home Medications
Allergies
Allergy/AdvReac Type Severity Reaction Status Date / Time
No Known Allergies Allergy Verified 03/23/24 08:36
Home Medications
�Medication �Instructions �Recorded �Confirmed �Last Taken �Type
lisinopril 2.5 mg tablet 2.5 mg PO DAILY 07/26/20 03/23/24 02/19/24 07:00 History
vitamin E 268 mg (400 unit) capsule 400 unit PO DAILY 07/26/20 03/23/24 02/19/24 12:00 History
multivitamin 1 tab PO DAILY 02/14/24 03/23/24 02/19/24 12:00 History
pentoxifylline 400 mg 400 mg PO BID 02/14/24 03/23/24 02/19/24 12:00 History
tablet,extended release
atorvastatin 40 mg tablet 40 mg PO HS 03/23/24 03/23/24 Unknown History
Review of Systems
-
Unable to Obtain full review of systems at this time due to: Patient Intubation
Vitals / Labs / Diagnostic Testing
Vital Signs
Temp Pulse Resp BP Pulse Ox
98.3 F 72 12 138/71 100
04/16/24 15:00 04/16/24 15:00 04/16/24 15:00 04/16/24 05:38 04/16/24 15:14
Lab Data
04/16/24 13:58
Laboratory Results
04/16/24
13:58
PT 18.0 H
INR 1.44
APTT 32.1
pH 7.39
pCO2 42
pO2 213 H
HCO3 25.4
O2 Delivery Level
Diagnostic Testing:
Physical Exam
-
HEENT: Normocephalic, Anicteric and Other (ETT in place)
Cardiovascular: S1/S2 and Peripheral Edema (negative)
Respiratory: Wheeze (negative), Rales (negative), Rhonchi (negative), Non-Labored Respirations, Other (Mechanical breath sounds heard bilaterally) and Other (chest tubes: bilateral pleural + mediastinal x2)
GI: Soft, Non Distended, Non Tender and Normal Bowel Sounds
Neurology: Tremors (negative) and Other (Sedated)
Skin: Warm and Dry
General: Respiratory Distress (negative), Comfortable, Chills (negative) and Sweats (negative)
Assessment
-
Assessment: 68-year-old male former tobacco smoker (quit 1976) with a past medical history of CAD + severe aortic stenosis who presents with elective CABG + surgical aortic valve replacement. Patient known to the cardiothoracic surgery service
with last visit on 03/13/[address] Amor. He underwent a stress echo on 03/05/2024 showing severe aortic stenosis with peak/mean gradients of 68/41 with a BA of 0.9 cm�. His EKG was positive for ischemia with 2-2.[address] depressions
inferolaterally at peak exercise. He was referred to a left + right heart catheterization which he underwent on 02/20/2024, showing a 70% lesion in the proximal ramus, 50% lesion in the mid LAD, 30-40% lesion in the distal RCA, with moderately
elevated filling pressures (LVEDP: 22 mmHg, PCWP: 23 mmHg). Also found severe aortic valve stenosis with BA: 0.69 cm� with a mean gradient of [address] TAVR on 03/02/2024 showing no acute findings in the chest, abdomen or pelvis.
Risks and benefits of surgical revascularization with surgical valve replacement were discussed and he has consented to procedure. On 04/16/2024 he underwent CABG x 1 (ALF to LAD) + SAVR (#25 Avalus ultra), with no immediate complications and he
was transferred to the CVICU postoperatively for further care. He was transfused 1 pack of platelets, has epicardial pacing wires x 2 with 4 chest tubes (bilateral pleural + inferior mediastinal and the superior mediastinal). [employer] services
consulted for additional management/recommendations.
Chronic conditions [employer]: CAD, severe aortic stenosis, history of oral cancer, testicular cancer, hypertension, hyperlipidemia, ventral incisional hernia, history of diverticulitis, former tobacco smoker (quit 1976)
Impression:
#CAD with nonocclusive 50% lesion in the mid LAD s/p CABG x 1 (ALF to LAD - POD#0)
#Severe aortic valve stenosis s/p SAVR (POD#0)
#Acute anemia
#Acute thrombocytopenia
#Hypocalcemia
#History of diverticulitis
#History of testicular cancer
#Hypertension
#Hyperlipidemia
#Former tobacco smoker (quit 1976)
Plan:
Ventilator settings reviewed
FiO2 will be weaned to maintain SpO2 >90-94%
Minute ventilation will be adjusted
Arterial blood gases will be monitored
Spontaneous breathing trial will be attempted with hopeful extubation after anesthesia/sedation wear off
prn nebulized bronchodilators
Pulmonary artery catheter parameters will be followed
Pressors/antihypertensive/inotropes/diuretics will be provided as needed
Maintain MAP>65
Replete electrolytes with K>4, Mg>2
Monitor chest tube output (bilateral pleural + mediastinal x2)
Monitor hemoglobin
Monitor platelet count and coags
Transfuse blood products as needed to maintain Hb>7g/dL, plt>50k (given post-operative status)
CT surgery managing chest tubes
Monitor blood sugar to maintain euglycemia with goal BG 140-180
Insulin drip per protocol
Aspiration precautions
VAP prevention protocol
DVT prophylaxis
Early nutrition
Early mobilization
Critical care statement: A total of 41 minutes of critical care time was provided for this patient today. This includes management of ventilator, spontaneous breathing trial, arterial blood gases, pressors, of unstable vital signs, evaluation of the
patient at bedside, reviewing the patient's pertinent medical records including radiographs, microbiology, laboratory evaluations, and discussion with primary team and critical care nursing.
[2024-04-16 13:48] LABS: Glucose - POC 124 mg/dl (70-99); HCO3 - POC 23 mmol/L (21-28); Hematocrit - POC 33 % PCV (42-52); Hemodilution- POC Yes; Hemoglobin Calculated - POC 11.1; Ionized Calcium - POC 1.22 mmol/L (1.15-1.33); PCO2 - POC 37 mmHg (35-48); PO2 - POC 374 mmHg (83-108); POC Comment POST; Potassium - POC 3.4 mmol/L (3.5-5.1); Sodium - POC 142 mmol/L (136-145); pH - POC 7.39 (7.35-7.45)
[2024-04-16 14:03] LABS: Glucose - Point of Care 141 mg/dl (70-99)
[2024-04-16 14:14] LABS: B.E. 0.3 mmol/L; HCO3 25.4 mmol/L (21-28); Ionized Calcium 1.05 mMOL/L (1.15-1.33); O2 Saturation % 99.4 % (94-98); PCO2 42 mmHg (35-48); PO2 213 mmHg (83-108); Potassium 3.6 mMOL/L (3.5-5.1); Sodium 137 mMOL/L (136-145); pH 7.39 (7.35-7.45)
[2024-04-16 14:17] LABS: Hematocrit 31.3 % (39.0-52.0); Hemoglobin 10.9 g/dL (13.0-18.0); Mixed Venous O2 Saturation 72.7 %; Platelet Count 135 10^3/uL (130-400)
[2024-04-16] MEDS: NSS 500 IV (14:21)
[2024-04-16] MEDS: ANCEF 10 IV ×2 (14:21)
[2024-04-16 14:23] LABS: APTT 32.1 Sec (23.4-35.0); INR 1.44
[2024-04-16 14:26] LABS: Blood Urea Nitrogen 24 mg/dl (9-20); Estimated Creatinine Clearance 93 ml/min; Glucose 137 mg/dl (70-99); Magnesium 2.6 mg/dl (1.6-2.3)
[2024-04-16] MEDS: KCL 50 IV ×2 (14:31→15:25)
[2024-04-16] MEDS: DILAUDID 0.5 MG IV ×2 (14:55→20:09)
[2024-04-16 15:00] LABS: Glucose - Point of Care 143 mg/dl (70-99)
[2024-04-16] MEDS: CALCIUM GLUCONATE 100 IV ×3 (15:23→20:58)
[2024-04-16] MEDS: PACERONE PO (15:38)
--- NOTE | 2024-04-16 15:47 | PTCARENOTE ---
Patient received from CVOR s/p AVR/CABG x 1. NSR via cm, SaO2 @ 100% on ventilator, titrating FiO2 as able. RIJ Cordis/[place] catheter, L radial arterial lines present - leveled, flushed, and calibrated w/good waveforms returned. Epicardial
V-wire to pulse generator, off. L and R pleural chest tubes (Y-connected to one pleurevac), mediastinal chest tubes x 2 (Y-connected to separate pleurevac), both collection chambers placed to -20cm suction w/no air leaks appreciated. Smiley catheter
to gravity. All procedural sites stable. Labs drawn, EKG performed, pcxr obtained. Dr. Amor to bedside, updated to status. See work list for full assessment, interventions performed, and intravenous infusions and titrations.
[2024-04-16] MEDS: OFIRMEV 100 IV (15:54)
[2024-04-16 16:04] LABS: Glucose - Point of Care 116 mg/dl (70-99)
--- NOTE | 2024-04-16 16:21 | W.PN.CD ---
Today's Communication / Plan
-
Wean vent to extubation.
Titrate pressors/inotropes to MAP > 65 mmHg, CI > 1.8 L/min/m2.
Pain/chest tube management per CT surgery.
Keep K > 4, Mg > 2, Ca > 8 and PO4 > 2.5.
Repeat EKG in the AM.
Continuous telemetry monitoring.
High dose, high potency statin.
Impression / Plan
-
Impression/Plan: 68 y/o male with history of oral CA s/p H/N radiation, hypertension and severe aortic stenosis, found to have significant, occlusive mLAD CAD admitted for elective CABG/AVR. Post operative EKG shows prolonged QTc.
#CAD
-Chronic.
-S/P 1V CABG (NARVAEZ to LAD) with Dr. Amor, 04/16/2024.
-Anticipate routine post operative management.
-Wean vent to extubation.
-Currently on norepinephrine 5 mcg/kg/min. Wean inotropes/pressors to maintain MAP > 65 mmHg, CI > 1.8 L/min/m2.
-Pain/chest tube management per CT surgery.
-High dose, high potency statin. Goal LDL < 55.
#Severe aortic valve stenosis
-Chronic, progressive.
-S/P SAVR (#25 Medtronic Avalus bioprosthetic valve) with Dr. Amor, 04/16/2024.
-Post operative management as above.
#Prolonged QTc
-New diagnosis.
-DDx includes medications, electrolytes. Unlikely to inborn anomaly.
-Keep K > 4, Mg > 2, Ca > 8 and PO4 > 2.5.
-Repeat EKG in the AM.
-Continuous telemetry monitoring.
#HTN
-Chronic.
-Currently requiring BP support after surgery.
-Daily re-evaluation for additional medication.
Subjective/Interval History:
CABG/SAVR today.
Patient tolerated procedure well, currently on CPAP in anticipation of extubation this afternoon.
DATA:
Stress Echocardiogram, 02/07/2024:
CONCLUSIONS
Abnormal stress echocardiogram.
-Baseline measurements: Severe aortic stenosis with peak/mean gradients of
68/41 mmHg calculated BA 0.9 cm2.
-Post exercise measurements: Severe aortic stenosis with peak/mean gradients of
120/64 mmHg, calculated BA 0.8 cm2.
-Positive ECG for ischemia with 2.0-2.[address] depression
inferolaterally at peak exercise; post-exercise ECG was slow to fully resolve
in recovery.
-No echocardiographic evidence of myocardial ischemia.
-DTS = -4.5.
-There was a noted drop in systolic blood pressure in Stage 3 of exercise;
exercise was soon thereafter terminated (Class IIa indication for aortic valve
replacement in asymptomatic severe aortic stenosis).
-Overall, moderate to high risk study.
Cardiac Catheterization, 02/20/2024:
CONCLUSIONS:
1. Right dominant circulation with a 70% lesion in the proximal ramus, a 30-40% lesion in the distal RCA immediately proximal to the origin of the RPDA and an occlusive, 50% lesion in the mid LAD (IFR = 0.83).
2. Severe aortic valve stenosis (BA = 0.69 cm�, mean gradient 42.09 mmHg).
3. Moderately elevated filling pressures (LVEDP = 22 mmHg, PCWP = 23 mmHg at 78.0 kg).
Physical Exam
Vital Signs/Labs
Vital Signs
Temp Pulse Resp BP Pulse Ox
37.1 C 85 23 84/63 100
04/16/24 16:00 04/16/24 16:06 04/16/24 16:06 04/16/24 15:23 04/16/24 16:06
04/15/24 04/16/24 04/17/24
11:59 11:59 11:59
Actual Weight 78 kg
04/16/24 13:58
PT 18.0 Sec (11.4-14.6) H 04/16/24 13:58
INR 1.44 04/16/24 13:58
APTT 32.1 Sec (23.4-35.0) 04/16/24 13:58
Magnesium 2.6 mg/dl (1.6-2.3) H 04/16/24 13:58
Physical Exam
Constitutional: No acute distress and Comfortable
EENT: Anicteric, Moist mucous membranes and Other (ET tube in place.)
Cardiovascular: Rhythm & rate is regular, Pedal edema is absent, JVD pressure is normal, S1S2 is normal and Rub present
Respiratory: Lungs clear to auscul., Wheeze Absent, Crackles Absent, Rhonchi Absent and Other (Mechanically ventilated.)
GI: Soft, Distention absent, Flat, Non tender and Normal bowel sounds
Neuro/Psych: Other (Asleep, waking up from sedation.)
Data Reviewed
-
Date of Service: April 16, 2024
Medical Decision Making: Reviewed Test Results, Test Interpretation and Review of Case with other Provider
EKG: Tracing Personally Visualized and interpreted and Report Reviewed by me
Echo: Report Reviewed by me
X-Ray/CT/US/MRI/NUC/PET: Image Personally Visualized and interpreted and Report Reviewed by me
Medical Tests (PFT, Pathology etc): Image Personally Visualized and interpreted and Report Reviewed by me
Labs: Labs Reviewed by me
Old Records: Reviewed
[2024-04-16 16:25] LABS: B.E. -1.2 mmol/L; HCO3 24.3 mmol/L (21-28); O2 Saturation % 99.6 % (94-98); PCO2 43 mmHg (35-48); PO2 138 mmHg (83-108); pH 7.36 (7.35-7.45)
--- NOTE | 2024-04-16 16:35 | RESPNOTE ---
Respiratory: patient extubated @1432 tolerated well. No stridor, no wheeze. SpO2 98% on 6 LPM nasal cannula.
--- NOTE | 2024-04-16 16:45 | PTCARENOTE ---
Patient displayed breaths over set ventilator rate, CPAP wean initiated. No apnea noted, patient obtaining good TV, able to follow simple commands, ARMENTA. ABG obtained, results conveyed to BIRGIT Rowe. Patient extubated to 6lnc w/out incident, SaO2
100%.
[2024-04-16] MEDS: TORADOL 15 MG IV (16:53)
[2024-04-16 17:04] LABS: Glucose - Point of Care 105 mg/dl (70-99)
[2024-04-16] MEDS: LACTATED RINGERS 250 ML IV ×3 (17:16→22:37)
[2024-04-16] MEDS: LOW STRENGTH ASPIRIN 81 MG PO (17:44)
[2024-04-16 17:59] LABS: Glucose - Point of Care 121 mg/dl (70-99)
[2024-04-16 18:21] LABS: Hematocrit 30.8 % (39.0-52.0); Hemoglobin 10.8 g/dL (13.0-18.0); Platelet Count 140 10^3/uL (130-400)
[2024-04-16] MEDS: ANCEF 5 IV (18:27)
[2024-04-16] MEDS: ROXICODONE 5 MG PO (18:27)
--- NOTE | 2024-04-16 19:29 | PTCARENOTE ---
received pt from previous rn. pt NSR per tele monitor HR 80s, ABP 105/60, PAP 24/12, CVP 12, no edema, V wire off, 3L NC pox 99% lungs diminished, CT x4 hooked to -20 cm wall suction no air leak/tidaling/crepitus draining red blood, hypoactive bs,
bacon draining clear yellow urine, all surgical sites intact, RIJ cordis w/ swan floated to 48, L rad a-line, piv intact infusing insulin per protocol. levo at 6. all lines leveled and flushed, plan of care discussed questions encouraged.
[2024-04-16 19:58] LABS: Glucose - Point of Care 102 mg/dl (70-99)
[2024-04-16] MEDS: SODIUM BICARBONATE 50 MEQ IV (20:18)
[2024-04-16] MEDS: SENOKOT-S 1 TABLET PO (20:55)
[2024-04-16] MEDS: LIPITOR 40 MG PO (20:56)
[2024-04-16] MEDS: NEURONTIN 100 MG PO (20:56)
[2024-04-16] MEDS: PACERONE 200 MG PO (20:57)
[2024-04-16] MEDS: TYLENOL 1000 MG PO (20:58)
--- NOTE | 2024-04-16 21:35 | PTCARENOTE ---
pt vomited small amount of liquid, CTPA Ed at bedside, pt w/ no complaints of nausea
[2024-04-16 21:56] LABS: Glucose - Point of Care 78 mg/dl (70-99)
[2024-04-16 22:57] LABS: Glucose - Point of Care 111 mg/dl (70-99)
[2024-04-17] VITALS (25 sets, daily range): BP systolic 62–128; BP diastolic 44–83; PULSE 82; O2SAT 90–96; BMI 24.3
[2024-04-17 00:01] LABS: Glucose - Point of Care 107 mg/dl (70-99)
--- NOTE | 2024-04-17 00:09 | PTCARENOTE ---
pr resting comfortably in bed w/ no complaints of pain or nausea, VSS, NSR per tele monitor assessment remains unchanged
[2024-04-17] MEDS: LEVOPHED 250 IV (00:42)
[2024-04-17 00:57] LABS: Glucose - Point of Care 112 mg/dl (70-99)
[2024-04-17] MEDS: ROXICODONE 5 MG PO ×3 (01:49→21:40)
[2024-04-17 01:57] LABS: Glucose - Point of Care 121 mg/dl (70-99)
[2024-04-17] MEDS: ANCEF 5 IV ×2 (03:13→11:40)
[2024-04-17 03:21] LABS: Hematocrit 27.2 % (39.0-52.0); Hemoglobin 9.5 g/dL (13.0-18.0); Mean Corp Hgb Conc. 34.9 g/dL (33.0-37.0); Mean Corpuscular Hgb 29.5 pg (27.0-31.0); Mean Corpuscular Volume 84.5 fL (80.0-94.0); Mean Platelet Volume 11.6 fL (7.4-10.4); Platelet Count 114 10^3/uL (130-400); Red Blood Cell Count 3.22 10^6/uL (4.70-6.10); Red Cell Dist. Width 13.6 % (11.5-14.5); White Blood Cell Count 16.4 10^3/uL (4.8-10.8)
[2024-04-17 03:23] LABS: Ionized Calcium 1.26 mMOL/L (1.15-1.33)
--- NOTE | 2024-04-17 03:28 | W.PN.CT ---
Addendum entered and electronically signed by Shahram Ruiz PA-C 04/17/24 07:25:
EKG this AM consistent with acute pericarditis (+rub), not in excruciating pain overnight
Original Note:
Today's Communication / Plan
-
Plan:
-No major issues overnight. Hemodynamically and neurologically intact
-Successfully extubated yesterday 04/16/24 @ 1432
-Weaned off of Levophed gtt this AM @ 0430. Remains on insulin gtt per protocol
-Last CI2.26, MVO2 72.6%, U/O since OR 780 mL
-Monitor chest tube drainage: 2meds 160/290, R/R pleurals 250/400
-Cont. current meds (ASA, Plavix, Amiodarone, Lipitor, will hold AM dose of Lopressor given postop hypotension)
-D/C swan and a-line this AM @ 0600
-D/C'd bacon catheter this AM @ 0600
-Tele phase once of insulin gtt today
-Maintain cordis
-Maintain temporary v-wires (will cut before d/c home)
-Encourage use of IS
-Wean off of O2 as tolerated
-OOB into chair/Ambulate
Assessment / Plan
-
Assessment:
-S/p Median sternotomy/AVR (#25 Avalus Ultra)/CABG x 1 (ALF to LAD), by Dr. Amor, 04/16/24, pod#1
-Severe
-Moderate AI
-Moderate MR
-CAD (+iFR mid LAD)
-LVEF 55-60% per intraop PINKY
-Large calcified sessile atheroma in distal aortic arch
-HTN
-HLD
-B/L carotid art. stenosis (>70% @ prox. LICA)
-Osteoarthritis
-Hx of testicular Ca S/P L orchiectomy
-Hx of oral Ca S/p surgical excision/reconstruction/XRT
-Hx of diverticulitis S/p resection
-S/P ventral hernia repair
-S/P R NANCY
-Acute postop blood loss/Anemia (stable without PRBCs)
-Acute postop coagulopathy (transfused 1{5pk} plts)
-Acute postop atelectasis
-Acute postop hypovolemia with subsequent hypervolemia
Discussed patient care with: Cardiology, Nursing, Respiratory Therapy, Pharmacy and Care Team
Subjective
Procedure
-S/p Median sternotomy/AVR (#25 Avalus Ultra)/CABG x 1 (ALF to LAD), by Dr. Amor, 04/16/24
-
Date of Service: April 17, 2024
Pt c/o incisional pain, otherwise feels well
Objective Data
-
Lab Results
04/17/24 03:08
PT 18.0 Sec (11.4-14.6) H 04/16/24 13:58
INR 1.44 04/16/24 13:58
APTT 32.1 Sec (23.4-35.0) 04/16/24 13:58
Vital Signs
Vital Signs
Temp Pulse Resp BP Pulse Ox
98.6 F 78 14 97/71 96
04/17/24 03:00 04/17/24 03:05 04/17/24 03:05 04/17/24 02:03 04/17/24 03:05
CT Intake/Output/Weight
04/16/24 04/16/24 04/17/24
06:59 18:59 06:59
Intake Total 616.3 / 1633.1 1016.8 / 1633.1
Output Total 660 / 1290 630 / 1290
Balance -43.7 / 343.1 386.8 / 343.1
SaO2: 96 (2L)
Physical Exam
-
General: Awake, Oriented and AOx3
Cardiovascular: Regular rate & rhythm, No Murmurs and Rub (likely friction rub from chest tubes)
Respiratory: Clear and Decreased Breath Sounds (at bases, otherwise clear)
Sternum: Stable
Incision: Clean, Dry, Intact and Dressing Intact
Extremities: Other (+trace edema)
Data Reviewed
-
Lab Results: Results Reviewed
Medications: Active Meds Reviewed
Chest X-Ray: Report Reviewed and Image Reviewed
ECG: Report Reviewed and Image Reviewed
[2024-04-17 03:51] LABS: Blood Urea Nitrogen 30 mg/dl (9-20); Calcium 9.1 mg/dl (8.4-10.2); Carbon Dioxide 27 mmol/L (22-30); Chloride 104 mmol/L (98-107); Estimated Creatinine Clearance 74 ml/min; Glucose 105 mg/dl (70-99); Magnesium 2.1 mg/dl (1.6-2.3); Potassium 4.6 mmol/L (3.5-5.1); Sodium 137 mmol/L (135-145); eGFR > 60.00
[2024-04-17 03:57] LABS: Glucose - Point of Care 118 mg/dl (70-99)
[2024-04-17] MEDS: CALCIUM GLUCONATE 100 IV (04:06)
[2024-04-17 05:54] LABS: Glucose - Point of Care 97 mg/dl (70-99)
--- NOTE | 2024-04-17 06:39 | PTCARENOTE ---
a-line and SWAN d/c'd per provider order
[2024-04-17] MEDS: TYLENOL 1000 MG PO ×3 (06:55→21:40)
--- NOTE | 2024-04-17 07:30 | PTCARENOTE ---
Assumed care of patient from architect internship RN. AAO x 3. SR on monitor. Epicardial wire off but to box. Room air 93 %. Lungs clear but diminished. Chest tubes x 4 to - 20 cm suction. No air leak or crepitus noted. Abdomen soft and non tender,
passing flatus. Sternal dressing c,d,i. Pulses palpable. No edema appreciated.
--- NOTE | 2024-04-17 08:03 | W.PN.INTV ---
Today's Communication / Plan
Recommendations
Pain control
Up OOB as tolerated
Encourage IS use
Cardiac rehab c/s
Goal BG 140-180mg/dL
Insulin drip is now off and patient will likely be transitioned to CVICU�telemetry status this afternoon. Once downgraded then [facility]/Pulmonary service will sign off. Please call back if there are any additional questions or concerns.
Assessment
-
Assessment: 68-year-old male former tobacco smoker (quit 1976) with a past medical history of CAD + severe aortic stenosis who presents with elective CABG + surgical aortic valve replacement. Patient known to the cardiothoracic surgery service
with last visit on 03/13/[address] Amor. He underwent a stress echo on 03/05/2024 showing severe aortic stenosis with peak/mean gradients of 68/41 with a BA of 0.9 cm�. His EKG was positive for ischemia with 2-2.[address] depressions
inferolaterally at peak exercise. He was referred to a left + right heart catheterization which he underwent on 02/20/2024, showing a 70% lesion in the proximal ramus, 50% lesion in the mid LAD, 30-40% lesion in the distal RCA, with moderately
elevated filling pressures (LVEDP: 22 mmHg, PCWP: 23 mmHg). Also found severe aortic valve stenosis with BA: 0.69 cm� with a mean gradient of [address] TAVR on 03/02/2024 showing no acute findings in the chest, abdomen or pelvis.
Risks and benefits of surgical revascularization with surgical valve replacement were discussed and he has consented to procedure. On 04/16/2024 he underwent CABG x 1 (ALF to LAD) + SAVR (#25 Avalus ultra), with no immediate complications and he
was transferred to the CVICU postoperatively for further care. He was transfused 1 pack of platelets, has epicardial pacing wires x 2 with 4 chest tubes (bilateral pleural + inferior mediastinal and the superior mediastinal). [facility] services
consulted for additional management/recommendations.
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
Impression:
#CAD with nonocclusive 50% lesion in the mid LAD s/p CABG x 1 (ALF to LAD - POD#1)
#Severe aortic valve stenosis s/p SAVR (POD#1)
#Acute anemia
#Acute thrombocytopenia
#Hypocalcemia
#History of diverticulitis
#History of testicular cancer
#Hypertension
#Hyperlipidemia
#Former tobacco smoker (quit 1976)
Plan:
Successfully extubated to nasal cannula on 04/16/2024; currently on room air breathing comfortably and saturating 93-94%
prn nebulized bronchodilators - not currently bronchospastic
Encourage IS use 10x per hour for at least 4 hrs a day
Maintain MAP>65
Replete electrolytes with K>4, Mg>2
Monitor chest tube output (bilateral pleural + mediastinal x2)
Monitor hemoglobin
Monitor platelet count and coags
Transfuse blood products as needed to maintain Hb>7g/dL, plt>50k (given post-operative status)
CT surgery managing chest tubes
Monitor blood sugar to maintain euglycemia with goal BG 140-180
Insulin drip now turned off - would use ISS to maintain BG goal as above
Aspiration precautions
DVT prophylaxis
Early nutrition
Early mobilization
Insulin drip is now off and patient will likely be transitioned to CVICU�telemetry status this afternoon. Once downgraded then narcotics investigator/pulmonary service will sign off. Please call pulmonary service if there are any additional questions or
concerns. Thank you for allowing us to be involved in the care of this patient.
Total time spent today was 56 minutes for this encounter. Time includes reviewing laboratory test/imaging results, reviewing pertinent medical records, obtaining and reviewing medical history, performing an appropriate exam, ordering medications,
tests and procedures. Time also includes documentation of this encounter, coordinating patient care and communicating with other healthcare professionals. Total time does not include separately billed tests performed on this date of service.
Subjective Dataa
Subjective Data
Date of Service:
Date of Service: April 17, 2024
Chief Complaint: [facility] Follow Up
Subjective:
Pt seen this AM. Resting in bed in NAD - on RA, breathing comfortably. He denies SOB, although does endorse post-operative site related chest pain. He is saturating 94%; HR 79. Chest tubes x4 in place (L+R pleural; mediastinal x2). He denies
MACE, N/V/F/c.
Review of Systems
General: Other (negative unless mentioned above)
Objective Data
Data Reviewed
Vital Signs / I&O / Oxygen:
Vital Signs
Temp Pulse Resp BP Pulse Ox
98.5 F 85 18 128/61 94
04/17/24 07:26 04/17/24 08:40 04/17/24 08:30 04/17/24 08:12 04/17/24 08:05
Intake and Output
04/16/24 04/17/24 04/18/24
06:59 06:59 06:59
Intake Total 1807.3 / 1817.8 381.7 / 381.7
Output Total 1470 / 1500 120 / 120
Balance 337.3 / 317.8 261.7 / 261.7
SaO2 [CPAP] 99
SaO2 [SIMV] 100
SaO2 94
Nasal Cannula flow liters per 2
minute
Physical Exam
General: Respiratory Distress (negative), Comfortable, Pain (chest at recent operative site), Chills (negative) and Sweats (negative)
HEENT: Normocephalic and Anicteric
Cardiovascular: S1-S2 and Peripheral Edema (negative)
Respiratory: Wheeze (negative), Crackles (negative), Rhonchi (negative), Non-Labored Respirations and Chest Tube (bilateral pleural + mediastinal x2)
GI: Soft, Non Distended and Normal Bowel Sounds
Neurology: AO x 3 and Tremors (negative)
Skin: Warm and Dry
Labs/Micro/Reports
Lab Data
04/17/24 03:08
04/17/24 03:08
Laboratory Results
04/16/24 04/16/24
13:58 16:14
PT 18.0 H
INR 1.44
APTT 32.1
pH 7.39 7.36
pCO2 42 43
pO2 213 H 138 H
HCO3 25.4 24.3
O2 Delivery Level
[2024-04-17 08:15] LABS: Glucose - Point of Care 110 mg/dl (70-99)
[2024-04-17] MEDS: PLAVIX 75 MG PO (08:17)
[2024-04-17] MEDS: THERAGRAN 1 TABLET PO (08:17)
[2024-04-17] MEDS: NEURONTIN 100 MG PO ×3 (08:17→21:40)
[2024-04-17] MEDS: TORADOL 15 MG IV ×2 (08:17→15:20)
[2024-04-17] MEDS: PROTONIX 40 MG PO (08:17)
[2024-04-17] MEDS: BACTROBAN 2% OINTMENT 1 APPLIC NASAL ×2 (08:18→20:14)
[2024-04-17] MEDS: SENOKOT-S 1 TABLET PO ×2 (08:18→20:14)
[2024-04-17] MEDS: LOW STRENGTH ASPIRIN 81 MG PO (08:18)
[2024-04-17] MEDS: PACERONE 200 MG PO ×2 (08:18→15:21)
[2024-04-17] MEDS: MAGNESIUM OXIDE 500 MG PO ×2 (08:18→20:14)
[2024-04-17] MEDS: LIDOCAINE 4% PATCH 1 PATCH TOPICAL (08:18)
--- NOTE | 2024-04-17 08:28 | W.PN.CD ---
Today's Communication / Plan
-
Check another ecg on 04-18
Impression / Plan
-
Impression/Plan: 68 y/o male with history of oral CA s/p H/N radiation, hypertension and severe aortic stenosis, found to have significant, occlusive mLAD CAD admitted for elective CABG/AVR. Post operative EKG shows prolonged QTc.
#CAD
-S/P 1V CABG (NARVAEZ to LAD) with Dr. Amor, 04/16/2024.
-Looks good POD#1
-OFF all pressors
- ECG abnormalities most c/w early repolarization rather than injury or pericarditis
-High dose, high potency statin. Goal LDL < 55.
#Severe aortic valve stenosis
-Chronic, progressive.
-S/P SAVR (#25 Medtronic Avalus bioprosthetic valve) with Dr. Amor, 04/16/2024.
-Post operative management as above.
#Prolonged QTc
-RESOLVED
#HTN
-Chronic.
-Daily re-evaluation for additional medication.
Subjective/Interval History:
Looks good postop day 1
DATA:
Stress Echocardiogram, 02/07/2024:
CONCLUSIONS
Abnormal stress echocardiogram.
-Baseline measurements: Severe aortic stenosis with peak/mean gradients of
68/41 mmHg calculated BA 0.9 cm2.
-Post exercise measurements: Severe aortic stenosis with peak/mean gradients of
120/64 mmHg, calculated BA 0.8 cm2.
-Positive ECG for ischemia with 2.0-2.[address] depression
inferolaterally at peak exercise; post-exercise ECG was slow to fully resolve
in recovery.
-No echocardiographic evidence of myocardial ischemia.
-DTS = -4.5.
-There was a noted drop in systolic blood pressure in Stage 3 of exercise;
exercise was soon thereafter terminated (Class IIa indication for aortic valve
replacement in asymptomatic severe aortic stenosis).
-Overall, moderate to high risk study.
Cardiac Catheterization, 02/20/2024:
CONCLUSIONS:
1. Right dominant circulation with a 70% lesion in the proximal ramus, a 30-40% lesion in the distal RCA immediately proximal to the origin of the RPDA and an occlusive, 50% lesion in the mid LAD (IFR = 0.83).
2. Severe aortic valve stenosis (BA = 0.69 cm�, mean gradient 42.09 mmHg).
3. Moderately elevated filling pressures (LVEDP = 22 mmHg, PCWP = 23 mmHg at 78.0 kg).
Physical Exam
Vital Signs/Labs
Vital Signs
Temp Pulse Resp BP Pulse Ox
98.5 F 77 16 102/60 93
04/17/24 07:26 04/17/24 07:26 04/17/24 07:26 04/17/24 06:36 04/17/24 07:54
04/16/24 04/17/24 04/18/24
06:59 06:59 06:59
Actual Weight 171 lb 15.369 oz 176 lb 12.972 oz
04/17/24 03:08
04/17/24 03:08
PT 18.0 Sec (11.4-14.6) H 04/16/24 13:58
INR 1.44 04/16/24 13:58
APTT 32.1 Sec (23.4-35.0) 04/16/24 13:58
Magnesium 2.1 mg/dl (1.6-2.3) 04/17/24 03:08
Physical Exam
Constitutional: No acute distress and Comfortable
EENT: Anicteric
Cardiovascular: Rhythm & rate is regular and S1S2 is normal
Respiratory: Respiratory effort normal, Wheeze Absent and Rhonchi Present
GI: Soft
Neuro/Psych: AO x 3 and Motor deficits absent
Data Reviewed
-
Date of Service: April 17, 2024
--- NOTE | 2024-04-17 08:44 | PTCARENOTE ---
Assist x 2 oob to chair. Initial dizziness upon standing, but resolved quickly. vss. Chest tube drainage noted.
[2024-04-17 10:06] LABS: Glucose - Point of Care 125 mg/dl (70-99)
[2024-04-17] MEDS: NSS IV (11:44)
[2024-04-17 12:10] LABS: Glucose - Point of Care 125 mg/dl (70-99)
--- NOTE | 2024-04-17 12:30 | PTCARENOTE ---
Resting in bed w/o complaint. Pain medication administered as needed. VSS. Chest tubes remain with dark old drainage. Assessment otherwise unchanged from prior.
--- NOTE | 2024-04-17 13:32 | W.PN.ANS.POP ---
Anesthesia Post Operative
- Anesthesia Post Op Note
Vital Signs Stable-See Nursing Note: Yes
Airway Patent: Yes
Adequate Pain Control: Yes
Change in Mental Status: No
Current Postoperative Nausea & Vomiting: No
Anesthesia Complications: No
General Anesthetic Recall: No
Unplanned Admission: No
Post Op Hydration Adequate: Yes
--- NOTE | 2024-04-17 14:14 | PTCARENOTE ---
Has not voided post bacon removal this am. Denies urge. Bladder scanned for [address] MANAGER MECHANICAL MAINTENANCE notified.
--- NOTE | 2024-04-17 16:04 | PTCARENOTE ---
Monitor alarming for a fib 120's. VSS, pt asymptomatic. CT team notified.
[2024-04-17] MEDS: CORDARONE 103 MG IV ×2 (16:08→22:11)
[2024-04-17] MEDS: LOPRESSOR 12.5 MG PO (16:09)
[2024-04-17] MEDS: CORDARONE 518 MG IV (16:09)
[2024-04-17] MEDS: NSS 250 IV ×2 (16:09→23:18)
--- NOTE | 2024-04-17 20:30 | PTCARENOTE ---
Assumed care of pt from dayshift RN. Walking rounds completed. Pt AAOx3. ARMENTA. Following commands appropriately. Pt A-fib on the tele monitor. HR 90s. Temporary epicardial V-wire intact and connected to box with box turned OFF. BP 90-100s/60-70s.
Palpable pulses throughout. No edema. Pt on RA. POX 97%. Mediastinal CTx2 and R/L pleural CT to -20 suction. No airleak/tidaling/crepitus noted at this time and output WNL. Deep breathing and IS encouraged. Abdomen soft/nontender. +BS. Pt DTV.
Bladder scan 263 mL. No urge at this time. All surgical sites stable. Right IJ cordis and PIV C/D/I. Pt assisted OOB and to the chair w/ assist x2. Amiodarone infusing as ordered. No c/o pain at this time. See worklist for full nursing assessment
and interventions. Call muro within reach.
[2024-04-17] MEDS: LIPITOR 40 MG PO (21:40)
[2024-04-17] MEDS: LOPRESSOR PO (21:41)
--- NOTE | 2024-04-17 22:50 | PTCARENOTE ---
PO amiodarone held and Amiodarone bolus administered as ordered. After bolus pt BP 60s/50s. HOB lowered. Pt stated he felt dizzy. BP not improving. CTPA at the bedside. 500 mg Calcium administered. Pt BP increased to 101/73. Pt remains in a-fib. HR
80s. Pt placed on 2 L NC. POX 100%. Pt AAOx3 and following commands.
[2024-04-17] MEDS: CALCIUM CHLORIDE 10% SYRINGE 500 MG IV (22:54)
[2024-04-18] VITALS (38 sets, daily range): BP systolic 78–149; BP diastolic 57–99; PULSE 90; O2SAT 96; BMI 24.6
--- NOTE | 2024-04-18 00:08 | PTCARENOTE ---
Pt reassessed. Pt A-fib on the tele monitor. HR 70-90s. BP 70s-90s/60s. Last BP 92/71. Normal Saline bolus infusing as ordered. Amiodarone drip infusing as ordered. Pt on 2L NC. POX 100%. CT assessment unchanged from original. All surgical sites
stable. Pt voided 325mL around 2140 w/o issue. No urge to void at this time. Pt resting in bed. Call muro within reach.
--- NOTE | 2024-04-18 03:49 | W.PN.CT ---
Addendum entered and electronically signed by Keyshawn Amor MD 04/18/24 08:09:
I saw and examined the patient.
The PA's note was reviewed and I agree with the note.
Comment:
DC chest tubes, continue amiodarone drip
Out of bed I-S ambulate
Gentle diuresis as blood pressure permits
Hold beta-swathi for now, will reassess for potential beta-swathi institution later today
Original Note:
Today's Communication / Plan
-
Plan:
-No major issues overnight. Hemodynamically and neurologically intact
-Pt unfortunately went into a-fib with RVR 120's yesterday 04/17 @ 1430 and remains in a-fib but now rate controlled
-Was started on Amiodarone and has received 2 boluses so far, BP has been too soft to allow administration of BB. Required fluid bolus overnight for BP support
-Had some difficulties voiding following bacon removal, but now voiding without difficulty
-Consider d/c of chest tubes: 2meds 60/165, R/L pleurals 45/240
-Cont. current meds (ASA, Plavix, Amiodarone, Lipitor, will hold Lopressor given postop hypotension)
-Monitor K, 5.2; Mg++ 2.4, placed mag oxide on hold. Gentle diuresis if BP permits
-Monitor cr 1.2, was 0.9 preop
-Maintain cordis another day
-Maintain temporary v-wires (will cut before d/c home)
-Encourage use of IS
-Wean off of O2 as tolerated
-OOB into chair/Ambulate
Assessment / Plan
-
Assessment:
-S/p Median sternotomy/AVR (#25 Avalus Ultra)/CABG x 1 (ALF to LAD), by Dr. Amor, 04/16/24, pod#2
-Severe
-Moderate AI
-Moderate MR
-CAD (+iFR mid LAD)
-LVEF 55-60% per intraop PINKY
-Large calcified sessile atheroma in distal aortic arch
-HTN
-HLD
-B/L carotid art. stenosis (>70% @ prox. LICA)
-Osteoarthritis
-Hx of testicular Ca S/P L orchiectomy
-Hx of oral Ca S/p surgical excision/reconstruction/XRT
-Hx of diverticulitis S/p resection
-S/P ventral hernia repair
-S/P R NANCY
-Acute postop blood loss/Anemia (stable without PRBCs)
-Acute postop coagulopathy (transfused 1{5pk} plts)
-Acute postop atelectasis
-Acute postop hypovolemia with subsequent hypervolemia
-Probable acute postop pericarditis vs early repolarization
Discussed patient care with: Cardiology, Nursing, Respiratory Therapy, Pharmacy and Care Team
Subjective
Procedure
-S/p Median sternotomy/AVR (#25 Avalus Ultra)/CABG x 1 (ALF to LAD), by Dr. Amor, 04/16/24
-
Date of Service: April 18, 2024
Pt c/o incisional pain, otherwise feels well
Objective Data
-
PT 18.0 Sec (11.4-14.6) H 04/16/24 13:58
INR 1.44 04/16/24 13:58
APTT 32.1 Sec (23.4-35.0) 04/16/24 13:58
Vital Signs
Vital Signs
Temp Pulse Resp BP Pulse Ox
98.3 F 80 18 88/68 100
04/18/24 00:00 04/18/24 02:50 04/18/24 00:00 04/18/24 02:45 04/18/24 00:00
CT Intake/Output/Weight
04/17/24 04/17/2404/18/24
06:59 18:59 06:59
Intake Total 1191.0 / 1817.8 776.5 / 959.8 183.3 / 959.8
Output Total 810 / 1500 300 / 715 415 / 715
Balance 381.0 / 317.8 476.5 / 244.8 -231.7 / 244.8
SaO2: 100 (2L)
Physical Exam
-
General: Awake, Oriented and AOx3
Cardiovascular: Irregular rate & rhythm (a-fib), No Murmurs, Rub and No Gallop
Respiratory: Decreased Breath Sounds (at bases, otherwise clear)
Sternum: Stable
Incision: Clean, Dry, Intact and Dressing Intact
Extremities: No Edema
Data Reviewed
-
Lab Results: Results Reviewed
Medications: Active Meds Reviewed
Chest X-Ray: Report Reviewed and Image Reviewed
ECG: Report Reviewed and Image Reviewed
[2024-04-18 04:50] LABS: Blood Urea Nitrogen 51 mg/dl (9-20); Calcium 9.1 mg/dl (8.4-10.2); Carbon Dioxide 28 mmol/L (22-30); Chloride 101 mmol/L (98-107); Estimated Creatinine Clearance 62 ml/min; Glucose 132 mg/dl (70-99); Magnesium 2.4 mg/dl (1.6-2.3); Potassium 5.2 mmol/L (3.5-5.1); Sodium 135 mmol/L (135-145); eGFR > 60.00
[2024-04-18 05:14] LABS: Hematocrit 25.6 % (39.0-52.0); Hemoglobin 8.7 g/dL (13.0-18.0); Mean Corpuscular Hgb 29.5 pg (27.0-31.0); Mean Corpuscular Volume 86.8 fL (80.0-94.0); Red Blood Cell Count 2.95 10^6/uL (4.70-6.10); Red Cell Dist. Width 13.8 % (11.5-14.5); White Blood Cell Count 11.9 10^3/uL (4.8-10.8)
[2024-04-18] MEDS: TYLENOL 1000 MG PO ×2 (05:21→16:40)
--- NOTE | 2024-04-18 05:32 | PTCARENOTE ---
Pt reassessed. Pt is A-fib on the tele monitor. HR 90s. Last BP 106/84. Pt on 2 L NC. POX 100%. All surgical sites stable. Labs drawn and sent. EKG obtained. Amiodarone infusing as ordered. Call muro within reach.
[2024-04-18 07:15] LABS: Mean Platelet Volume 12.1 fL (7.4-10.4); Platelet Count 92 10^3/uL (130-400)
--- NOTE | 2024-04-18 07:55 | PTCARENOTE ---
Assumed care of patient from plant mechanic RN. AAO x 3 sitting up in the chair. C/o feeling worn out but positive attitude appreciated. A fib on monitor. Amio infusion maintained. Lungs clear but decreased. Using IS independently to 1250. Pulse
ox 95%. Chest tubes x 4 to - 20 cm suction . No air leak or crepitus noted. Surgical site c,d,i. Pulses palpable. Plan for day discussed.
[2024-04-18] MEDS: PACERONE 200 MG PO ×2 (08:05→16:45)
[2024-04-18] MEDS: SENOKOT-S 1 TABLET PO ×2 (08:06→21:09)
[2024-04-18] MEDS: LIDOCAINE 4% PATCH 1 PATCH TOPICAL (08:06)
[2024-04-18] MEDS: NEURONTIN 100 MG PO ×2 (08:06→16:40)
[2024-04-18] MEDS: PLAVIX 75 MG PO (08:06)
[2024-04-18] MEDS: BACTROBAN 2% OINTMENT 1 APPLIC NASAL ×2 (08:06→21:09)
[2024-04-18] MEDS: PROTONIX 40 MG PO (08:06)
[2024-04-18] MEDS: LOW STRENGTH ASPIRIN 81 MG PO (08:06)
[2024-04-18] MEDS: THERAGRAN 1 TABLET PO (08:06)
--- NOTE | 2024-04-18 08:29 | W.PN.CD ---
Today's Communication / Plan
-
Check bilirubin.
Check peripheral smear.
Furosemide 40 mg IV x1 and monitor.
Repeat labs in the afternoon.
Encourage ambulation/incentive spirometry.
Continue rate control with amiodarone. Consider DCCV if he fails to convert after some diuresis.
Impression / Plan
-
Impression/Plan: 68 y/o male with history of oral CA s/p H/N radiation, hypertension and severe aortic stenosis, found to have significant, occlusive mLAD CAD admitted for elective CABG/AVR complicated by post operative atrial fibrillation.
#CAD
-Chronic.
-S/P 1V CABG (NARVAEZ to LAD) with Dr. Amor, 04/16/2024.
-Routine post operative care.
-ECG abnormalities most c/w early repolarization rather than injury or pericarditis
-High dose, high potency statin. Goal LDL < 55.
-Encourage incentive spirometry, ambulation.
-Furosemide 40 mg IV x1 and monitor.
#Severe aortic valve stenosis
-Chronic, progressive.
-S/P SAVR (#25 Medtronic Avalus bioprosthetic valve) with Dr. Amor, 04/16/2024.
-Post operative management as above.
#Atrial fibrillation
-Paroxysmal, post operative (since 04/17/2024 @ 14:30).
-Currently rate controlled on amiodarone.
-CHADS2-Vasc = 3 (HTN, Age x1, Vascular disease).
-Hold anticoagulation in light of anemia.
-I suspect he may convert with diuresis. Otherwise, we will need to consider DCCV (PINKY guided if iwe go > 48 hours from onset).
#HTN
-Chronic.
-Daily re-evaluation for additional medication.
#FEN/Renal
-Acute.
-BUN rising and K is now 5.2.
-Monitor with furosemide. Repeat labs this afternoon.
#Anemia
-Acute.
-There is some post operative loss as well as likely dilution (weight up).
-Rising BUN raises the possibility of hemolysis (combined with low platelets) - intravascular vs. GI related vs. dilution with cardiorenal syndrome.
-Add bilirubin, peripheral smear to AM labs. Check hemoccult.
-Monitor H/H with diuresis.
Subjective/Interval History:
Weight up 3 kg from baseline (78 kg --> 81 kg).
HR now > 100.
Hypotensive yesterday.
Metoprolol 12.5 mg given yesterday.
Hbg down to 8.7 <-- 9.5 <-- 10.8.
BUN up to 51, creatinine 1.2.
K+ 5.2.
DATA:
Stress Echocardiogram, 02/07/2024:
CONCLUSIONS
Abnormal stress echocardiogram.
-Baseline measurements: Severe aortic stenosis with peak/mean gradients of
68/41 mmHg calculated BA 0.9 cm2.
-Post exercise measurements: Severe aortic stenosis with peak/mean gradients of
120/64 mmHg, calculated BA 0.8 cm2.
-Positive ECG for ischemia with 2.0-2.[address] depression
inferolaterally at peak exercise; post-exercise ECG was slow to fully resolve
in recovery.
-No echocardiographic evidence of myocardial ischemia.
-DTS = -4.5.
-There was a noted drop in systolic blood pressure in Stage 3 of exercise;
exercise was soon thereafter terminated (Class IIa indication for aortic valve
replacement in asymptomatic severe aortic stenosis).
-Overall, moderate to high risk study.
Cardiac Catheterization, 02/20/2024:
CONCLUSIONS:
1. Right dominant circulation with a 70% lesion in the proximal ramus, a 30-40% lesion in the distal RCA immediately proximal to the origin of the RPDA and an occlusive, 50% lesion in the mid LAD (IFR = 0.83).
2. Severe aortic valve stenosis (BA = 0.69 cm�, mean gradient 42.09 mmHg).
3. Moderately elevated filling pressures (LVEDP = 22 mmHg, PCWP = 23 mmHg at 78.0 kg).
Physical Exam
Vital Signs/Labs
Vital Signs
Temp Pulse Resp BP Pulse Ox
36.7 C 101 16 109/73 95
04/18/24 07:54 04/18/24 07:54 04/18/24 07:54 04/18/24 07:30 04/18/24 07:54
04/16/24 1104/18/24
11:59 11:59 11:59
Actual Weight 78 kg 80.2 kg 81 kg
04/18/24 04:16
04/18/24 04:16
PT 18.0 Sec (11.4-14.6) H 04/16/24 13:58
INR 1.44 04/16/24 13:58
APTT 32.1 Sec (23.4-35.0) 04/16/24 13:58
Magnesium 2.4 mg/dl (1.6-2.3) H 04/18/24 04:16
Physical Exam
Constitutional: No acute distress and Comfortable
EENT: Anicteric and Moist mucous membranes
Cardiovascular: JVD pressure is normal, Rhythm/rate is irregular, Pedal edema present (Trace bilateral LE's.), S1S2 is normal and Murmur/rub/gallop absent
Respiratory: Respiratory effort normal and Other (Decreased throughout.)
GI: Soft, Distention absent, Flat, Non tender and Normal bowel sounds
Neuro/Psych: AO x 3
Data Reviewed
-
Date of Service: April 18, 2024
Medical Decision Making: Reviewed Test Results, Independent Historian Assessment and Test Interpretation
EKG: Tracing Personally Visualized and interpreted and Report Reviewed by me
Echo: Tracing Personally Visualized and interpreted and Report Reviewed by me
X-Ray/CT/US/MRI/NUC/PET: Image Personally Visualized and interpreted and Report Reviewed by me
Medical Tests (PFT, Pathology etc): Image Personally Visualized and interpreted and Report Reviewed by me
Labs: Labs Reviewed by me
Old Records: Reviewed
--- NOTE | 2024-04-18 09:29 | PTCARENOTE ---
Chest tubes x [address] PA and RN. Pt tolerated w/o issue. Resting in bed after.
[2024-04-18] MEDS: LASIX 40 MG IV (09:43)
[2024-04-18 10:08] LABS: Direct Bilirubin 0.2 mg/dl (0.0-0.4)
[2024-04-18 10:15] LABS: % Basophils 0.1 % (0-2); % Immature Granulocytes 0.4 % (0-0.5); % Lymphocytes 13.5 % (20.5-51.1); % Monocytes 13.7 % (1.7-9.3); % Neutrophils 72.3 % (42.2-75.2); Absolute Immature Granulocytes 0.1 10^3/uL (0-0.05); Absolute Lymphocytes 1.6 10^3/uL (1.2-3.4); Absolute Monocytes 1.6 10^3/uL (0.1-0.6); Absolute Neutrophils 8.7 10^3/uL (1.4-6.5); Nucleated Red Blood Cells % 0 % (-)
[2024-04-18] MEDS: LOPRESSOR 12.5 MG PO (12:00)
--- NOTE | 2024-04-18 13:00 | PTCARENOTE ---
resumed care of patient. remains in afib, HR 90-115s . 96% RA, lungs diminished but clear. occasional prod cough. Pulses weakly palpable. amio infusing at ordered rate through cordis. Patent. BRP. tolerating diet. walks with min assist. tolerating
pain from surgery. all surgical sites c/d/i. will continue to monitor.
--- NOTE | 2024-04-18 14:08 | CM ---
CM following for DC planning needs.
Reviewed initial assessment. Pt. resides alone in a private 2 story condo.
Pt. is indep. w/ ADLs, mobility without the use of any assisted device.
Anticipate DC to home once medically stable w/ CT Transitional Care RN.
CM to cont. to follow for DC planning needs.
[2024-04-18] MEDS: TYLENOL PO (15:35)
[2024-04-18] MEDS: NSS IV (16:40)
[2024-04-18] MEDS: CORDARONE 518 MG IV (20:04)
--- NOTE | 2024-04-18 20:45 | PTCARENOTE ---
Report received from SHANIQUA Cardona. Pt sitting in recliner chair. Assisted on walk in [place] per request. Walked ~ 130 feet in [place]. Denies SOB, dizziness, lightheadedness. Pt in AF. Rate 90-110's. (rate 110's with walking). Amiodarone gtt renewed by PA
and new bag hung per order. Normotensive. Audible heart tones. V wire present. Attached to PM box. Box off. For pulse and wound assessments, see flowsheets. Pt on room air. Sats 96-98%. BBS present. Decreased to B bases. Occasional moist,
nonproductive cough. CDB and IS encouraged. IS peak 750 mls. Pt neuro intact. Oriented x 4. Moves all extremities equally. Speech clear. Belly soft, nontender. Hypoactive bs x 4. Reports passing flatus. Urine clear, yellow. Voids in toilet. No c/o
pain. After assessment, helped back to bed with 1-assist. CHG bath done. New gown and linens provided. PA in to see pt. Ongoing plan of care.
[2024-04-19] VITALS (15 sets, daily range): BP systolic 84–130; BP diastolic 63–88; PULSE 100; O2SAT 96–97; BMI 24.1
[2024-04-19] MEDS: NEURONTIN 100 MG PO ×4 (00:13→22:04)
[2024-04-19] MEDS: LOPRESSOR 12.5 MG PO ×3 (00:13→19:39)
[2024-04-19] MEDS: LIPITOR 40 MG PO ×2 (00:13→22:04)
[2024-04-19] MEDS: PACERONE 200 MG PO ×4 (00:14→22:04)
[2024-04-19] MEDS: TYLENOL 1000 MG PO ×3 (00:15→22:05)
--- NOTE | 2024-04-19 00:30 | PTCARENOTE ---
VS done. See flowsheet. Meds given. Lopressor 12.5 mg given (was given earlier at 12:00 on 04/28/24). Will monitor BP. Pt helped to BR to void clear, yellow urine and back to bed. Attempting to go back to sleep.
--- NOTE | 2024-04-19 02:05 | PTCARENOTE ---
BP 84/63 (71). BP taken 2 hours after metoprolol 12.5 mg po given. Pt also sleeping. Remains in AF, rate 80-90's. Information relayed to BIRGIT Shields. Will reassess BP. Ongoing plan of care.
[2024-04-19 05:39] LABS: Hematocrit 25.6 % (39.0-52.0); Hemoglobin 8.8 g/dL (13.0-18.0); Mean Corp Hgb Conc. 34.4 g/dL (33.0-37.0); Mean Corpuscular Hgb 29.4 pg (27.0-31.0); Mean Corpuscular Volume 85.6 fL (80.0-94.0); Mean Platelet Volume 11.7 fL (7.4-10.4); Platelet Count 101 10^3/uL (130-400); Red Blood Cell Count 2.99 10^6/uL (4.70-6.10); Red Cell Dist. Width 13.6 % (11.5-14.5); White Blood Cell Count 11.1 10^3/uL (4.8-10.8)
--- NOTE | 2024-04-19 05:59 | PTCARENOTE ---
Labs drawn and sent. Portable CXR done. Pt helped to sitting. VS done. BP 130/88. Remains in AF, 90-100's. Helped to BR to void clear, yellow urine. Then helped to recliner.chair. Tylenol 1 GM given as scheduled. Multiple blankets provided.. BP in
chair 110/80.
[2024-04-19 06:01] LABS: Blood Urea Nitrogen 44 mg/dl (9-20); Calcium 8.2 mg/dl (8.4-10.2); Carbon Dioxide 29 mmol/L (22-30); Chloride 100 mmol/L (98-107); Estimated Creatinine Clearance 74 ml/min; Glucose 112 mg/dl (70-99); Potassium 4.4 mmol/L (3.5-5.1); Sodium 135 mmol/L (135-145); eGFR > 60.00
--- NOTE | 2024-04-19 06:05 | W.PN.CT ---
Today's Communication / Plan
-
-pod #3
-no significant issues overnight, few low BPs - improved
-remains in a-fib 90s-110s- on Amio drip
-labs are stable
-weaned off O2- pOx 95% on RA
-current meds (ASA, Plavix, Lipitor, Lopressor, Amio, Protonix)
-encourage IS, OOB
Assessment / Plan
-
Assessment:
-S/p Median sternotomy/AVR (#25 Avalus Ultra)/CABG x 1 (ALF to LAD), by Dr. Amor, 04/16/24, pod#3
-Severe
-Moderate AI
-Moderate MR
-CAD (+iFR mid LAD)
-LVEF 55-60% per intraop PINKY
-Large calcified sessile atheroma in distal aortic arch
-HTN
-HLD
-B/L carotid art. stenosis (>70% @ prox. LICA)
-Osteoarthritis
-Hx of testicular Ca S/P L orchiectomy
-Hx of oral Ca S/p surgical excision/reconstruction/XRT
-Hx of diverticulitis S/p resection
-S/P ventral hernia repair
-S/P R NANCY
-Acute postop blood loss/Anemia (stable without PRBCs)
-Acute postop coagulopathy (transfused 1{5pk} plts)
-Acute postop atelectasis
-Acute postop hypovolemia with subsequent hypervolemia
-Probable acute postop pericarditis vs early repolarization
-Acute postop hyperkalemia - improved
Discussed patient care with: Nursing and Care Team
Subjective
Procedure
-S/p Median sternotomy/AVR (#25 Avalus Ultra)/CABG x 1 (ALF to LAD), by Dr. Amor, 04/16/24
-
Date of Service: April 19, 2024
Objective Data
-
Lab Results
04/19/24 05:20
04/19/24 05:20
PT 18.0 Sec (11.4-14.6) H 04/16/24 13:58
INR 1.44 04/16/24 13:58
APTT 32.1 Sec (23.4-35.0) 04/16/24 13:58
Vital Signs
Vital Signs
Temp Pulse Resp BP Pulse Ox
98.1 F 89 16 130/88 95
04/19/24 05:38 04/19/24 06:00 04/19/24 05:38 04/19/24 05:38 04/19/24 05:38
CT Intake/Output/Weight
04/18/24 04/18/24 04/19/24
06:59 18:59 06:59
Intake Total 343.5 / 1120.0 1160.3 / 1480.7 320.4 / 1480.7
Output Total 475 / 775 870 / 870
Balance -131.5 / 345.0 290.3 / 610.7 320.4 / 610.7
SaO2: 95
Physical Exam
-
General: Awake and AOx3
Cardiovascular: Irregular rate & rhythm, No Murmurs and No Rub
Respiratory: Decreased Breath Sounds
Sternum: Stable
Incision: Clean, Dry and Intact
Extremities: No Edema (2+ PTs b/l, DPs by Doppler b/l)
Abdomen: soft, nontender, nondistended, + bowel sounds
Data Reviewed
-
Lab Results: Results Reviewed
Medications: Active Meds Reviewed
Chest X-Ray: Report Reviewed and Image Reviewed
ECG: Report Reviewed and Image Reviewed
--- NOTE | 2024-04-19 07:21 | W.PN.CD ---
Today's Communication / Plan
-
OK to stop IV amio. We will want to be sure AF can be rate controlled on oral amio and metoprolol 12.5 bid
Impression / Plan
-
Impression/Plan: 68 y/o male with history of oral CA s/p H/N radiation, hypertension and severe aortic stenosis, found to have significant, occlusive mLAD CAD admitted for elective CABG/AVR complicated by post operative atrial fibrillation.
#CAD
-Chronic.
-S/P 1V CABG (NARVAEZ to LAD) with Dr. Amor, 04/16/2024.
-Routine post operative care.
-ECG abnormalities most c/w early repolarization rather than injury or pericarditis
-High dose, high potency statin. Goal LDL < 55.
-Encourage incentive spirometry, ambulation.
#Severe aortic valve stenosis
-Chronic, progressive.
-S/P SAVR (#25 Medtronic Avalus bioprosthetic valve) with Dr. Amor, 04/16/2024.
-Doing well POD#3
#Atrial fibrillation
-Paroxysmal, post operative (since 04/17/2024 @ 14:30). Remains in AF
-Currently rate controlled on amiodarone.
-CHADS2-Vasc = 3 (HTN, Age x1, Vascular disease).
-Continue diuresis
- I would stop IV amio and continue oral amio (200 tid) until discharge then 200 bid. He should start OAT as soon as CTS comfortable doing so. Would reassess for DCCV if he remains in AF 3-4 wks after onset of OAT. Stop Plavix once OAT begins.
Although PINKY guided DCCV is an option, I don't see it as needed as long as AF rate can be controlled and there is strong likliehood he would be back in and out of AF over next few weeks even after successful caodaism of NSR
#HTN
-Chronic.
-Daily re-evaluation for additional medication.
#FEN/Renal
-Cr 1.0. Nothing here.
#Anemia
-This looks to be normal postop anemia
-Hb 8.8
-Bili normal
- OAT can be started when CTS feels safe to do so perhaps tomorrow (POD4)
Subjective/Interval History:
Remains in AF. rate OK. No acute complaints
DATA:
Stress Echocardiogram, 02/07/2024:
CONCLUSIONS
Abnormal stress echocardiogram.
-Baseline measurements: Severe aortic stenosis with peak/mean gradients of
68/41 mmHg calculated BA 0.9 cm2.
-Post exercise measurements: Severe aortic stenosis with peak/mean gradients of
120/64 mmHg, calculated BA 0.8 cm2.
-Positive ECG for ischemia with 2.0-2.[address] depression
inferolaterally at peak exercise; post-exercise ECG was slow to fully resolve
in recovery.
-No echocardiographic evidence of myocardial ischemia.
-DTS = -4.5.
-There was a noted drop in systolic blood pressure in Stage 3 of exercise;
exercise was soon thereafter terminated (Class IIa indication for aortic valve
replacement in asymptomatic severe aortic stenosis).
-Overall, moderate to high risk study.
Cardiac Catheterization, 02/20/2024:
CONCLUSIONS:
1. Right dominant circulation with a 70% lesion in the proximal ramus, a 30-40% lesion in the distal RCA immediately proximal to the origin of the RPDA and an occlusive, 50% lesion in the mid LAD (IFR = 0.83).
2. Severe aortic valve stenosis (BA = 0.69 cm�, mean gradient 42.09 mmHg).
3. Moderately elevated filling pressures (LVEDP = 22 mmHg, PCWP = 23 mmHg at 78.0 kg).
Physical Exam
Vital Signs/Labs
Vital Signs
Temp Pulse Resp BP Pulse Ox
98.1 F 89 16 130/88 95
04/19/24 05:38 04/19/24 06:00 04/19/24 05:38 04/19/24 05:38 04/19/24 06:08
04/18/24 04/19/24 04/20/24
06:59 06:59 06:59
Actual Weight 178 lb 9.191 oz 175 lb 4.28 oz
04/19/24 05:20
04/19/24 05:20
PT 18.0 Sec (11.4-14.6) H 04/16/24 13:58
INR 1.44 04/16/24 13:58
APTT 32.1 Sec (23.4-35.0) 04/16/24 13:58
Magnesium 2.0 mg/dl (1.6-2.3) 04/19/24 05:20
Physical Exam
Constitutional: No acute distress and Comfortable
Cardiovascular: Rhythm/rate is irregular, S1S2 is normal and Murmur/rub/gallop absent
Respiratory: Respiratory effort normal
GI: Soft and Non tender
Neuro/Psych: AO x 3 and Motor deficits absent
Data Reviewed
-
Date of Service: April 19, 2024
--- NOTE | 2024-04-19 08:00 | PTCARENOTE ---
Resumed care of patient from prev RN. Pt sitting in recliner chair. min assist. mostly independent in care. Remains in AF. Rate 90-110's. amio turned off per PA orders. V wire present. Box off. Sats 96-98% on RA. lungs clear. Occasional moist,
nonproductive cough. IS encouraged. Belly soft, nontender. bs x 4. Voids in toilet. will continue to monitor. all surigcal sites c/d/i
[2024-04-19] MEDS: PROTONIX 40 MG PO (09:01)
[2024-04-19] MEDS: KCL 10 MEQ PO (09:02)
[2024-04-19] MEDS: LOW STRENGTH ASPIRIN 81 MG PO (09:02)
[2024-04-19] MEDS: SENOKOT-S 1 TABLET PO ×2 (09:02→19:39)
[2024-04-19] MEDS: THERAGRAN 1 TABLET PO (09:02)
[2024-04-19] MEDS: LIDOCAINE 4% PATCH TOPICAL (09:03)
[2024-04-19] MEDS: LASIX 40 MG IV (09:03)
[2024-04-19] MEDS: BACTROBAN 2% OINTMENT 1 APPLIC NASAL ×2 (09:06→19:40)
[2024-04-19] MEDS: PLAVIX 75 MG PO (09:11)
[2024-04-19] MEDS: NSS IV (11:41)
[2024-04-19] MEDS: ELIQUIS 5 MG PO ×2 (11:46→22:04)
--- NOTE | 2024-04-19 12:36 | CM ---
CM continues to follow for DC planning needs.
Met w/ patient at bedside. He reports that he feels well. He is hopeful for DC tomorrow.
We discussed DC plan for home w/ CT Transitional Care RN.
CM will cont. to follow.
--- NOTE | 2024-04-19 13:24 | PTCARENOTE ---
basilio d/c;yesenia. wire cut by BIRGIT eckert. Showered patient. back out and resting in chair. states he feels much better and would love to go home! will continue to [place].
--- NOTE | 2024-04-19 14:23 | PTCARENOTE ---
received pt from previous shift RN, aranza on tele w HR 100, VSS. Pt denies CP or SOB. Post op surgical sites open to air. Plan of care reviewed w the pt and questions encouraged.
[2024-04-19] MEDS: TYLENOL PO (15:12)
--- NOTE | 2024-04-19 21:24 | PTCARENOTE ---
Received care of patient at change of shift. Tele monitor shows SR, VSS, and sating 95% RA. Lungs decreased in the bases. Denies any pain or discomfort at this time. Left hand IV site leaking, site removed and new IV placed in LAC without
difficulty. POC ongoing, call muro within reach.
--- NOTE | 2024-04-19 23:49 | PTCARENOTE ---
Assessment remains unchanged. Tele remains SR, HR in the 60-90's at rest. Currently laying in bed.
[2024-04-20 04:20] VITALS: BP 124/75
[2024-04-20 04:34] VITALS: BMI 23.8
--- NOTE | 2024-04-20 04:47 | PTCARENOTE ---
Morning labs collected and sent per order. Patient remains pain free at this time. VSS, and tele rhythm remains SR. POC ongoing. Call muro within reach.
--- NOTE | 2024-04-20 04:49 | W.PN.CT ---
Addendum entered and electronically signed by Keyshawn Amor MD 04/20/24 08:01:
I saw and examined the patient.
The PA's note was reviewed and I agree with the note.
Comment:
POD#4
No major overnight events. Converted to NSR at 4:30pm yesterday
- Continue Eliquis
- Apical PTX on L (small), F/U 2-view CXR today
- D/C home today
Original Note:
Today's Communication / Plan
-
-pod #4
-no issues overnight, ambulating without problems, wants to go home
-converted to nsr @ 4:30 pm 04/19- Eliquis started 04/19
-weaned off O2 - pOx 98 on RA
-follow 2v-CXR
-likely d/c home
Assessment / Plan
-
Assessment:
-S/p Median sternotomy/AVR (#25 Avalus Ultra)/CABG x 1 (ALF to LAD), by Dr. Amor, 04/16/24, pod#4
-Severe
-Moderate AI
-Moderate MR
-CAD (+iFR mid LAD)
-LVEF 55-60% per intraop PINKY
-Large calcified sessile atheroma in distal aortic arch
-HTN
-HLD
-B/L carotid art. stenosis (>70% @ prox. LICA)
-Osteoarthritis
-Hx of testicular Ca S/P L orchiectomy
-Hx of oral Ca S/p surgical excision/reconstruction/XRT
-Hx of diverticulitis S/p resection
-S/P ventral hernia repair
-S/P R NANCY
-Acute postop blood loss/Anemia (stable without PRBCs)
-Acute postop coagulopathy (transfused 1{5pk} plts)
-Acute postop atelectasis
-Acute postop hypovolemia with subsequent hypervolemia
-Probable acute postop pericarditis vs early repolarization
-Acute postop hyperkalemia - improved
Discussed patient care with: Nursing and Care Team
Subjective
Procedure
-S/p Median sternotomy/AVR (#25 Avalus Ultra)/CABG x 1 (ALF to LAD), by Dr. Amor, 04/16/24
-
Date of Service: April 20, 2024
Objective Data
-
PT 18.0 Sec (11.4-14.6) H 04/16/24 13:58
INR 1.44 04/16/24 13:58
APTT 32.1 Sec (23.4-35.0) 04/16/24 13:58
Vital Signs
Vital Signs
Temp Pulse Resp BP Pulse Ox
97.5 F 65 20 124/75 98
04/20/24 04:20 04/20/24 04:20 04/20/24 04:20 04/20/24 04:20 04/20/24 04:20
CT Intake/Output/Weight
04/19/24 04/19/24 04/20/24
06:59 18:59 06:59
Intake Total 320.4 / 1480.7 250 / 610 360 / 610
Balance 320.4 / 610.7 250 / 610 360 / 610
SaO2: 98
Physical Exam
-
General: Awake and AOx3
Cardiovascular: Regular rate & rhythm, No Murmurs and No Rub
Respiratory: Decreased Breath Sounds
Sternum: Stable
Incision: Clean, Dry and Intact
Extremities: No Edema (2+ DP b/l)
Abdomen: soft, nontender, nondistended, + flatus, no BM yet
Data Reviewed
-
Lab Results: Results Reviewed
Medications: Active Meds Reviewed
Chest X-Ray: Report Reviewed and Image Reviewed
ECG: Report Reviewed and Image Reviewed
[2024-04-20 05:00] LABS: Blood Urea Nitrogen 36 mg/dl (9-20); Calcium 8.3 mg/dl (8.4-10.2); Carbon Dioxide 29 mmol/L (22-30); Chloride 101 mmol/L (98-107); Estimated Creatinine Clearance 74 ml/min; Glucose 95 mg/dl (70-99); Potassium 4.4 mmol/L (3.5-5.1); Sodium 138 mmol/L (135-145); eGFR > 60.00
[2024-04-20 05:04] LABS: Hematocrit 24.7 % (39.0-52.0); Hemoglobin 8.5 g/dL (13.0-18.0); Mean Corp Hgb Conc. 34.4 g/dL (33.0-37.0); Mean Corpuscular Hgb 29.3 pg (27.0-31.0); Mean Corpuscular Volume 85.2 fL (80.0-94.0); Mean Platelet Volume 11.4 fL (7.4-10.4); Platelet Count 130 10^3/uL (130-400); Red Cell Dist. Width 13.4 % (11.5-14.5); White Blood Cell Count 10.4 10^3/uL (4.8-10.8)
[2024-04-20] MEDS: TYLENOL 1000 MG PO (06:07)
[2024-04-20] MEDS: MILK OF MAGNESIA 30 ML PO (06:07)
--- NOTE | 2024-04-20 07:09 | W.PN.CD ---
Today's Communication / Plan
-
Management of PTX per CT surgery.
Ambulatory monitor (after post operative amiodarone course has been completed ~ 6 weeks).
Incentive spirometry.
Ambulation.
Disposition per CT surgery.
Impression / Plan
-
Impression/Plan: 68 y/o male with history of oral CA s/p H/N radiation, hypertension and severe aortic stenosis, found to have significant, occlusive mLAD CAD admitted for elective CABG/AVR complicated by post operative atrial fibrillation.
#CAD
-Chronic.
-S/P 1V CABG (NARVAEZ to LAD) with Dr. Amor, 04/16/2024.
-Routine post operative care.
-ECG abnormalities most c/w early repolarization rather than injury or pericarditis.
-High dose, high potency statin. Goal LDL < 55.
-Encourage incentive spirometry, ambulation.
#Severe aortic valve stenosis
-Chronic, progressive.
-S/P SAVR (#25 Medtronic Avalus bioprosthetic valve) with Dr. Amor, 04/16/2024.
#Atrial fibrillation
-Paroxysmal, post operative (since 04/17/2024 @ 14:30).
-Converted to NSR.
-Rate/rhythm control amiodarone and metoprolol.
-CHADS2-Vasc = 3 (HTN, Age x1, Vascular disease).
-Therapeutic anticoagulation with apixaban 5 mg BID.
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 This should be done several weeks after completion of her post operative amiodarone course.
#Post operative PTX
-Acute.
-Conservative management at this time.
-Deferred to CTS.
#HTN
-Chronic.
-Daily re-evaluation for additional medication.
#Anemia
-Acute.
-This looks to be postop anemia.
-Hbg stable after initiation of DOAC.
Subjective/Interval History:
Weight is down 1.1 kg.
Chest tubes pulled.
There is an apical left PTX on CXR.
Feels well.
CT surgery angling for discharge.
DATA:
Stress Echocardiogram, 02/07/2024:
CONCLUSIONS
Abnormal stress echocardiogram.
-Baseline measurements: Severe aortic stenosis with peak/mean gradients of
68/41 mmHg calculated BA 0.9 cm2.
-Post exercise measurements: Severe aortic stenosis with peak/mean gradients of
120/64 mmHg, calculated BA 0.8 cm2.
-Positive ECG for ischemia with 2.0-2.[address] depression
inferolaterally at peak exercise; post-exercise ECG was slow to fully resolve
in recovery.
-No echocardiographic evidence of myocardial ischemia.
-DTS = -4.5.
-There was a noted drop in systolic blood pressure in Stage 3 of exercise;
exercise was soon thereafter terminated (Class IIa indication for aortic valve
replacement in asymptomatic severe aortic stenosis).
-Overall, moderate to high risk study.
Cardiac Catheterization, 02/20/2024:
CONCLUSIONS:
1. Right dominant circulation with a 70% lesion in the proximal ramus, a 30-40% lesion in the distal RCA immediately proximal to the origin of the RPDA and an occlusive, 50% lesion in the mid LAD (IFR = 0.83).
2. Severe aortic valve stenosis (BA = 0.69 cm�, mean gradient 42.09 mmHg).
3. Moderately elevated filling pressures (LVEDP = 22 mmHg, PCWP = 23 mmHg at 78.0 kg).
Physical Exam
Vital Signs/Labs
Vital Signs
Temp Pulse Resp BP Pulse Ox
36.4 C 64 20 124/75 98
04/20/24 04:20 04/20/24 06:00 04/20/24 04:20 04/20/24 04:20 04/20/24 04:55
04/18/24 04/19/24 04/20/24
11:59 11:59 11:59
Actual Weight 81 kg 79.5 kg 78.4 kg
04/20/24 04:29
04/20/24 04:29
PT 18.0 Sec (11.4-14.6) H 04/16/24 13:58
INR 1.44 04/16/24 13:58
APTT 32.1 Sec (23.4-35.0) 04/16/24 13:58
Magnesium 2.0 mg/dl (1.6-2.3) 04/20/24 04:29
Physical Exam
Constitutional: No acute distress and Comfortable
EENT: Anicteric and Moist mucous membranes
Cardiovascular: Rhythm & rate is regular, Pedal edema is absent, JVD pressure is normal, S1S2 is normal and Murmur/rub/gallop absent
Respiratory: Respiratory effort normal
GI: Soft, Distention absent, Flat, Non tender and Normal bowel sounds
Neuro/Psych: AO x 3
Data Reviewed
-
Date of Service: April 20, 2024
Medical Decision Making: Reviewed Test Results, Independent Historian Assessment, Test Interpretation and Review of Case with other Provider
EKG: Tracing Personally Visualized and interpreted and Report Reviewed by me
Echo: Tracing Personally Visualized and interpreted and Report Reviewed by me
X-Ray/CT/US/MRI/NUC/PET: Image Personally Visualized and interpreted and Report Reviewed by me
Medical Tests (PFT, Pathology etc): Image Personally Visualized and interpreted and Report Reviewed by me
Labs: Labs Ordered by me
Old Records: Reviewed
[2024-04-20 08:29] VITALS: BP 142/87
[2024-04-20] MEDS: THERAGRAN 1 TABLET PO (08:54)
[2024-04-20] MEDS: ELIQUIS 5 MG PO (08:54)
[2024-04-20] MEDS: NEURONTIN 100 MG PO (08:54)
[2024-04-20] MEDS: SENOKOT-S 1 TABLET PO (08:54)
[2024-04-20] MEDS: LOW STRENGTH ASPIRIN 81 MG PO (08:54)
[2024-04-20] MEDS: LOPRESSOR 12.5 MG PO (08:55)
[2024-04-20] MEDS: LIDOCAINE 4% PATCH TOPICAL (08:55)
[2024-04-20] MEDS: BACTROBAN 2% OINTMENT 1 APPLIC NASAL (08:55)
[2024-04-20] MEDS: PROTONIX 40 MG PO (08:55)
[2024-04-20] MEDS: PACERONE 200 MG PO (08:55)
[2024-04-20] MEDS: NSS IV (08:56)
--- NOTE | 2024-04-20 09:26 | PTCARENOTE ---
assumed care of pt from previous shift RN, sinus rhythm on tele, + peripheral pulses, trace edema. Pt denies CP or SOB, lungs diminished, coughing and deep breathing encouraged. +bs, tolerating PO intake, voids spontaneously. Surgical sites stable.
PIV flushes easily. Pt sent for 2 view CXR. Plan of care reviewed w pt and questions encouraged.
--- NOTE | 2024-04-20 10:18 | W.DCSUMMARY ---
Discharge Summary
Discharge Data
Date of Admission: 04/16/24
Date of Discharge: 04/20/24
-
Pending Results: No
Hospital Course
Primary care physician:
Dr. Campos
Outpatient gravel screener:
Dr. Carnes
Inpatient consultants:
CBC, Guard Manager
Procedures:
1. AVR #25 Avalus and CABG x1 NARVAEZ-LAD)
Primary Diagnosis:
1. Severe aortic stenosis.
Secondary Diagnoses:
1. Coronary Artery Disease
2. Hypertension
3. Hyperlipidemia
4. Testicular cancer
5. Oral cancer s/p radiation
6. Diverticulitis status post resection and hernia repair
7. Osteoarthritis
8. Postoperative atrial fibrillation
HPI: 68-year-old male with history of severe aortic stenosis and coronary artery disease presented electively on 04/16 for an AVR and CABG with Dr. Amor.
Hospital course:
Patient was electively admitted on 04/16 and postoperatively returned to the CVICU. There were no acute complications and he returned to the CVICU on Levophed, insulin, and Precedex infusions. Precedex was turned off and patient was extubated by
1430. On 04/17 postoperative day 1 patient's morning beta-swathi was held due to hypotension however he converted into atrial fibrillation later in that afternoon. He was started on beta-blockers, and amiodarone bolus and infusion was started.
His Smiley catheter came out and due to low urine output he was given 250 mL of normal saline. On 04/18 postoperative day #2 patient remains in atrial fibrillation he was continued on beta-blockers and amiodarone. He was also diuresed with 40 mg of
IV Lasix and chest tubes were removed. On 04/19 postoperative day 3 patient remained in rate controlled A-fib and was started on Eliquis. However around 1630 patient converted into sinus rhythm in the 90s. Cordis was removed. On 04/20
postoperative day 4 patient remained sinus rhythm with a stable blood pressure. 2 view chest x-ray showed resolution of a trace right pneumothorax. Patient was deemed stable for discharge home.
Home medication changes:
See below
Discharge Plan
-
Patient Disposition: Home (Routine Discharge)
Discharge Diagnosis/Procedures: CABGx1 and AVR
Condition: Good
Diet: Low Cholesterol
Activity: No strenuous activity
Driving Restrictions: Not until seen by your Dr
Bathing Restrictions: OK to Shower
Other Services: Cardiac Rehab
Specialty Instructions: Weigh Daily- Call MD for wt gain/loss 3 lbs overnight/5 lbs in 1 week
Activity Restrictions/Additional Instructions:
ACTIVITY:
-No strenuous activity: no heavy lifting, pushing, pulling anything over 15 pounds for one month
-continue to use stairs as tolerated
DRIVING RESTRICTIONS:
-No driving for one month or until approved by your surgeon
WOUND CARE:
-Shower daily. Use soap & water.
-No lotions, creams or powders on incision area.
DIET:
-continue a low fat/low cholesterol diet.
-IF you are diabetic, continue carb controlled diet.
CARDIAC REHAB:
-Please make appointment to start in 5-6 weeks with your local hospital program. (See Cardiac Rehabilitation Discharge Booklet).
SPECIALTY INSTRUCTIONS:
-Weigh yourself daily. Call your physician for any weight gain/loss of 3 lbs overnight or 5 lbs in one week.
-REPORT any clicking noise or uneven appearance of your sternum to your surgeon immediately.
-If you smoke, you are instructed to quit. The OR smoking hotline phone number is [phone]
Referrals:
CT Transitional Care Nurse [Outside] (The Cardiothoracic Transitional Care Nurse will call you to set up a visit in 1-2 days.)
[facility] [Outside] - 05/22/24 8:30 am
(Cardiac Rehab Orientation appointment and� First Exercise appointment is on 05/22/24 at 8:30 AM
The Cardiac Rehab gym is located on the first floor [facility]
Shelbi Garcia CRNP [Specified Professional Personl] - 05/23/24 10:00 am
Ena Campos PA-C [Family Provider] -
Keyshawn Amor MD [Active] - 05/15/24 1:30 pm
Additional Discharge Medication Instructions: Please do not resume your lisinopril
Prescriptions:
New
Eliquis 5 mg Tablet
5 mg PO BID Qty: 30 0RF
amiodarone 200 mg tablet
200 mg PO BID Qty: 90 1RF
Rx Instructions:
Please take 200mg twice a day for 14 days and then 200mg daily
acetaminophen 325 mg Tablet
650 mg PO Q4HPRN PRN (Reason: mild pain,headache,temp >101F ) Qty: 1 0RF
aspirin 81 mg Tablet,Chewable
81 mg PO DAILY Qty: 0 0RF
gabapentin 100 mg Capsule
100 mg PO TID Qty: 60 0RF
metoprolol tartrate 25 mg Tablet
12.5 mg PO Q12 Qty: 60 1RF
Continued
vitamin E 400 UNIT capsule
400 unit PO DAILY
multivitamin Tablet
1 tab PO DAILY
pentoxifylline 400 mg Tablet Extended Release
400 mg PO BID
atorvastatin 40 mg tablet
40 mg PO HS
Discontinued
lisinopril 2.5 MG tablet
2.5 mg PO DAILY
Discharge Orders:
Discharge Patient (As Directed); Ordered 04/20/24
Ordered By: Charline Younger
Care Plan Goals
Care Plan Goals:
Problem: Readiness for enhanced knowledge related to diagnosis and treatment plan
Goal: Understand your diagnosis and treatment plan needs, including medications if applicable.
Instructions: Know your diagnosis, underlying causes and treatment plan options, including medications if applicable. Consult with your health care team to learn about your diagnosis and treatment plan, including medications if applicable.
Discharge Date and Time
Discharge Date/Time: 04/20/24 12:12
Print Language: THAI
[2024-04-20 10:25] VITALS: BP 133/70; BP 140/83; PULSE 68; O2SAT 100; O2SAT 96
--- NOTE | 2024-04-20 11:06 | PTCARENOTE ---
post op dressings removed, pt tolerated shower. Discharge pending
--- NOTE | 2024-04-20 11:08 | CM ---
Priced Saeidis thru [facility], local pharmacy.
Cost of 1 mo supply is approx. $23.
Placed free 30 d coupon in patient's DC folder.
--- NOTE | 2024-04-20 11:33 | CM ---
CM following for DC planning needs.
Met w/ patient at bedside. He is prepared to leave today. He offers no concerns or needs.
Reviewed DC plan for home w/ CT Transitional Care RN. Pt. aware/ agreeable to this.
Reviewed cost of Eliquis and free 30 d coupon; he is agreeable to cost.
Plan for home today w/ CT RN.
No other needs noted.
--- NOTE | 2024-04-20 12:10 | PTCARENOTE ---
IV line and tele monitor d/c'ed. Discharge instructions, follow up appointments and medication list reviewed w the pt, questions encouraged. Pt was discharged via wheel chair.
== END 2024-04-20 12:12 | disposition home or self-care (01) | DRG 220 ==
LOC: CVICU 05:08
PROVIDERS: Anesthesiology; Physician Assistant Medical; ADMITTING PHYSICIAN Thoracic Surgery (Cardiothoracic Vascular Surgery); CONSULT PHYSICIAN Internal Medicine Critical Care Medicine; FAMILY PHYSICIAN Physician Assistant Medical
PROC: B24BZZ4 Ultrasonography of Heart with Aorta, Transesophageal (ICD-10-PCS; 2024-04-16)
PROC: 02100ZC Bypass Coronary Artery, One Artery from Thoracic Artery, Open Approach (ICD-10-PCS; 2024-04-16)
PROC: 5A1221Z Performance of Cardiac Output, Continuous (ICD-10-PCS; 2024-04-16)
PROC: 02RF08Z Replacement of Aortic Valve with Zooplastic Tissue, Open Approach (ICD-10-PCS; 2024-04-16)
DX: I08.0 Rheumatic disorders of both mitral and aortic valves (principal); D62 Acute posthemorrhagic anemia; I30.9 Acute pericarditis, unspecified; D68.9 Coagulation defect, unspecified; J98.11 Atelectasis; J95.811 Postprocedural pneumothorax; I25.10 Atherosclerotic heart disease of native coronary artery without angina pectoris; I10 Essential (primary) hypertension; E78.5 Hyperlipidemia, unspecified; E83.51 Hypocalcemia; M19.90 Unspecified osteoarthritis, unspecified site; I48.91 Unspecified atrial fibrillation; E86.1 Hypovolemia; E87.5 Hyperkalemia; Y83.2 Surgical operation with anastomosis, bypass or graft as the cause of abnormal reaction of the patient, or of later complication, without mention of misadventure at the time of the procedure; E87.70 Fluid overload, unspecified; Z79.82 Long term (current) use of aspirin; Z79.899 Other long term (current) drug therapy; Z82.49 Family history of ischemic heart disease and other diseases of the circulatory system; Z85.47 Personal history of malignant neoplasm of testis; Z85.819 Personal history of malignant neoplasm of unspecified site of lip, oral cavity, and pharynx; Z87.891 Personal history of nicotine dependence; Z92.3 Personal history of irradiation
CPT/HCPCS: 88305; 88311; 36415; 71045; 71046; 80048; 80053; 81003; 82248; 82330; 82565; 82805; 82810; 82947; 82962; 83036; 83735; 84132; 84302; 84520; 85014; 85018; 85025; 85027; 85049; 85610; 85730; 86850; 86900; 86901; 86920; 87070; 87147; 93005; 93312; 93320; 93325; 93880; 94002; 94010; P9047; P9073

== ENCOUNTER 2024-06-04 08:48 | Outpatient (RCR) | payer OTHER, SELFPAY | END 2024-06-04 23:59 | disposition home or self-care (01) | LOC: CRHB 08:48 | PROVIDERS: ATTENDING PHYSICIAN Internal Medicine Cardiovascular Disease | DX: I25.10 Atherosclerotic heart disease of native coronary artery without angina pectoris (principal); Z95.1 Presence of aortocoronary bypass graft (principal); Z95.4 Presence of other heart-valve replacement | CPT/HCPCS: G0422; G0423 ==

== ENCOUNTER 2024-07-06 08:58 | Outpatient (RCR) | payer OTHER, SELFPAY | END 2024-07-06 23:59 | disposition home or self-care (01) | LOC: CRHB 08:58 | PROVIDERS: ATTENDING PHYSICIAN Internal Medicine | DX: Z95.1 Presence of aortocoronary bypass graft (principal); Z95.4 Presence of other heart-valve replacement | CPT/HCPCS: G0422; G0423 ==

== ENCOUNTER 2024-08-03 08:44 | Outpatient (RCR) | payer OTHER, SELFPAY | END 2024-08-03 23:59 | disposition home or self-care (01) | LOC: CRHB 08:44 | PROVIDERS: ATTENDING PHYSICIAN Internal Medicine | DX: Z95.1 Presence of aortocoronary bypass graft (principal); Z95.4 Presence of other heart-valve replacement | CPT/HCPCS: G0422; G0423 ==

== ENCOUNTER → 2024-08-07 12:56 | Outpatient (REF) | payer OTHER, SELFPAY ==
[2024-08-07 14:30] LABS: HDL Cholesterol 56 mg/dl; LDL Cholesterol, Calculated 37 mg/dl; Total Cholesterol 111 mg/dl (50-199); Triglyceride 93 mg/dl (10-149); Very Low Density Lipoprotein 18 mg/dl (0-30)
== END ==
LOC: REG 12:56
PROVIDERS: ATTENDING PHYSICIAN Internal Medicine; FAMILY PHYSICIAN Physician Assistant Medical
DX: Z95.1 Presence of aortocoronary bypass graft (principal); Z95.4 Presence of other heart-valve replacement
CPT/HCPCS: 36415; 80061

== ENCOUNTER 2024-08-17 09:16 | Outpatient (RCR) | payer OTHER, SELFPAY | END 2024-08-17 23:59 | disposition home or self-care (01) | LOC: CRHB 09:16 | PROVIDERS: ATTENDING PHYSICIAN Internal Medicine | DX: Z95.1 Presence of aortocoronary bypass graft (principal); Z95.4 Presence of other heart-valve replacement | CPT/HCPCS: G0422; G0423 ==

== ENCOUNTER → 2024-08-30 07:36 | Outpatient (REF) | payer OTHER, SELFPAY | LOC: RCS 07:36 | PROVIDERS: ATTENDING PHYSICIAN Nurse Practitioner; FAMILY PHYSICIAN Physician Assistant Medical | DX: I35.0 Nonrheumatic aortic (valve) stenosis (principal) | CPT/HCPCS: 93306 ==

== ENCOUNTER → 2025-03-07 10:06 | Outpatient (REF) | payer OTHER, SELFPAY | LOC: RCS 10:06 | PROVIDERS: ATTENDING PHYSICIAN Internal Medicine; FAMILY PHYSICIAN Physician Assistant Medical | DX: I25.810 Atherosclerosis of coronary artery bypass graft(s) without angina pectoris (principal); Z95.3 Presence of xenogenic heart valve | CPT/HCPCS: 93306 ==

== ENCOUNTER → 2025-05-23 10:13 | Outpatient (REF) | payer OTHER, SELFPAY | LOC: RCS 10:13 | PROVIDERS: ATTENDING PHYSICIAN Internal Medicine; FAMILY PHYSICIAN Physician Assistant Medical | DX: R42 Dizziness and giddiness (principal) | CPT/HCPCS: 93225; 93226 ==